=== PATIENT | female | born 1980 | race African-American/Black ===

== ENCOUNTER 2016-12-13 07:26 | Emergency (ER) | payer MEDICAID ==
--- NOTE | 2016-12-13 08:13 | ER Document Report ---
ED ENT - General Mode of Arrival: Ambulatory Information source: Patient TRAVEL OUTSIDE OF THE [place] IN LAST 30 DAYS: No - HPI Patient complains to provider of: Nose problem Associated symptoms: Other - See above <RUSTY FUNG - Last Filed: 12/13/16 08:36> <ALEXANDRA LOGAN - Last Filed: 12/13/16 15:40> - General Chief Complaint: Nose Bleed Stated Complaint: NOSE BLEED Time Seen by Provider: 12/13/16 07:54 Notes: Patient is a 36 year old female, with a past medical history including HTN, who presents to the emergency department complaining of a nose bleed onset yesterday. Patient states that she has been dizzy and having headaches and neck pain for the past couple of weeks and has not been taking her Lisinopril for 2- 3 months because of side effects she read about. Patient states she has not talked about this with her PCP. Patient states that the nose bleed was "gushing " last night and had blood down running down her throat, patient states the bleeding has stopped this morning. Patient denies vaginal bleeding and bleeding gums. PCP: [facility] (RUSTY FUNG) - Related Data Allergies/Adverse Reactions: Penicillins Allergy (Verified 12/13/16 07:38) Past Medical History - General Information source: Patient - Social History Smoking Status: Unknown if Ever Smoked Family History: Reviewed & Not Pertinent Patient has suicidal ideation: No Patient has homicidal ideation: No Pulmonary Medical History: Reports: Hx Bronchitis GI Medical History: Reports: Hx Gastroesophageal Reflux Disease - heartburn r/t per pt Past Surgical History: Reports: Hx Gynecologic Surgery - leep - Immunizations Hx Diphtheria, Pertussis, Tetanus Vaccination: No <RUSTY FUNG - Last Filed: 12/13/16 08:36> Review of Systems - Review of Systems Constitutional: No symptoms reported EENT: See HPI, Nose discharge. denies: Other - gum bleeding Cardiovascular: See HPI, Dizziness Respiratory: No symptoms reported Gastrointestinal: No symptoms reported Genitourinary: No symptoms reported Female Genitourinary: denies: Vaginal bleeding Musculoskeletal: See HPI, Neck pain Skin: No symptoms reported Hematologic/Lymphatic: No symptoms reported Neurological/Psychological: See HPI, Headaches -: Yes All other systems reviewed and negative <RUSTY FUNG - Last Filed: 12/13/16 08:36> Physical Exam - Vital signs Interpretation: Normal - General General appearance: Appears well, Alert - HEENT Head: Normocephalic, Atraumatic Eyes: Normal Ears: Normal External canal: Normal Tympanic membrane: Normal Nasal: Normal Mouth/Lips: Normal Pharynx: Normal - Respiratory Respiratory status: No respiratory distress - Cardiovascular Rhythm: Regular Heart sounds: Normal auscultation Murmur: No - Extremities General upper extremity: Normal inspection General lower extremity: Normal inspection - Neurological Neuro grossly intact: Yes Cognition: Normal Orientation: AAOx4 Danya Coma Scale Eye Opening: Spontaneous [place] Coma Scale Verbal: Oriented Danya Coma Scale Motor: Obeys Commands Danya Coma Scale Total: 15 Speech: Normal - Psychological Associated symptoms: Normal affect, Normal mood - Skin Skin Temperature: Warm Skin Moisture: Dry Skin Color: Normal <RUSTY FUNG - Last Filed: 12/13/16 08:36> Course <RUSTY FUNG - Last Filed: 12/13/16 08:36> - Laboratory Result Diagrams: 12/13/16 08:30 <ALEXANDRA LOGAN - Last Filed: 12/13/16 15:40> - Re-evaluation Re-evalutation: 12/13/16 09:06 Patient presents to the emergency department with elevated blood pressure has been taking her blood pressure medication in months because she read it could have a side effect associated with it even though she did not have a side effect with it. Also has not seen her primary care physician months. Blood pressure is been chronically elevated yesterday she had a nosebleed when she laid down flat it drip down in the back of the throat. The first episode of nosebleed that she has had. She does not have any history of anticoagulation or blood disorder. The epistaxis is resolved right now with normal HEENT examination. Also states she has been having right paracervical neck pain going on for several weeks. It is worse when she wakes up in the morning she feels like it is stiff and sore after she sleeps. She has no chest pain no shortness of breath no nausea vomiting abdominal pain diarrhea fevers chills change in appetite. On examination her blood pressure is elevated there is no epistaxis. Pupils are correct that time extremities are moist no posterior pharyngeal erythema edema or exudate trach is midline neck is supple heart lungs abdomen soft normal neurological examination GCS of 15. CT of head is negative for acute pathology. Currently there is no epistaxis. Discussed blood pressure management with her she seems unwilling to take her medication. And refuses a dose of it here. Explained her that she would need to follow-up with her primary care physician in 2-3 days for alternatives to elevated blood pressure as this will lead to stroke heart attack or . Right now the nosebleed is stopped instructed her on reasons for ED return sooner (ALEXANDRA LOGAN) - Vital Signs Vital signs: Temp Pulse Resp BP Pulse Ox 97.8 F 80 18 149/106 H 97 12/13/16 09:24 12/13/16 09:24 12/13/16 09:24 12/13/16 09:24 12/13/16 09:24 - Laboratory Laboratory results interpreted by me: 12/13/16 08:30 Sodium 148.5 H Chloride 111 H Discharge <RUSTY FUNG - Last Filed: 12/13/16 08:36> <ALEXANDRA LOGAN - Last Filed: 12/13/16 15:40> - Discharge Clinical Impression: hypertension untreated, nose bleed resolved, dizziness Condition: Stable Disposition: HOME, SELF-CARE Additional Instructions: High Blood Pressure When your blood pressure was taken today it was elevated. Today's reading was . Pre-hypertension/Hypertension: The patient has been informed that they may have pre-hypertension or Hypertension based on a blood pressure reading in the emergency department. I recommend that the patient call the primary care provider listed on their dischargge instructions or a physician of their choice this wee to arrage follow up for further evaluation of possible pre- hypertension or Hypertension. Sometimes, stress or illness causes a temporary elevation of your blood pressure. We suggest that you get your blood pressure measured three more times during the next few days to see if this is more than a temporary abnormality. If your blood pressure is greater than 150/90 on each occasion, you must have treatment. Some simple things you can do to help are: If you have blood pressure medicine but aren't using it regularly, start taking it again. Get some aerobic exercise for at least 20 minutes on a daily basis. (See your doctor before beginning a new exercise program.) Eat a low-fat diet. Lose excess weight. Avoid salty foods and avoid adding salt to any of the foods you eat. Avoid diet pills, decongestants, "energizing" herbs, and other medicines that elevate blood pressure. If left untreated, hypertension greatly enhances your risk for developing heart disease and strokes. Please don't ignore this problem. Dizziness Under normal circumstances, your sense of balance is controlled by a number of signals that your brain receives from several locations: Eyes. No matter what your position, visual signals help you determine where your body is in space and how it's moving. Sensory nerves. These are in your skin, muscles and joints. Sensory nerves send messages to your brain about body movements and positions. Inner ear. The organ of balance in your inner ear is the vestibular labyrinth. It includes loop-shaped structures (semicircular canals) that contain fluid and fine, hair-like sensors that monitor the rotation of your head. Near the semicircular canals are the utricle and saccule, which contain tiny particles called otoconia ([id number]). These particles are attached to sensors that help detect gravity and fyjq-gre-dawwk motion. Good balance depends on at least two of these three sensory systems working well. For instance, closing your eyes while washing your hair in the shower doesn't mean you'll lose your balance. Signals from your inner ear and sensory nerves help keep you upright. However, if your central nervous system can't process signals from all of these locations, if the messages are contradictory, or if the sensory systems aren't functioning properly, you may experience loss of balance. Dizziness may have a number of potential causes. These may include: Nosebleed Instructions There is a significant chance of re-bleeding following a nosebleed. Proper care makes this less likely. Do not touch the nose for 24 hours. Do not blow the nose forcefully for one week. After 24 hours, gently apply Vaseline ointment to both nostrils with the tip of a finger, three times a day, for one week. It's normal to have a bloody mucous discharge for a few days. If active bleeding recurs, blow all the blood from the nose, then sit quietly and pinch the nose as firmly as possible for 10 minutes. If this does not stop the bleeding, return for further care. If packing was left in the nose and it starts to come out of the nostril, either tuck it back in or cut it off. Don't pull it out. Return for recheck and removal of the packing when instructed. Persons with frequent nosebleeds should avoid aspirin (unless prescribed for another reason). Humidity in the bedroom, and petroleum jelly applied to the nostrils at night may help. Referrals: FORTINO WILSON MD [Primary Care Provider] - (Your blood pressure is elevated and you have been taking her blood pressure medication in months please start your medication at home today and take blood pressure medication daily to prevent stroke heart attack or endorgan damage. Follow-up with your primary care physician in 2-3 days return for increasing worsening or new symptoms) Scribe Attestation: 12/13/16 09:06 I personally performed the services described in the documentation reviewed the documentation recorded by my scribe in my presence and it accurately and completely records my words and actions (ALEXANDRA LOGAN) Scribe Documentation - Scribe Written by Manuel:: manuel Rios, 12/13/16, 0852 acting as scribe for :: Abe <RUSTY FUNG - Last Filed: 12/13/16 08:36>
[2016-12-13 09:01] LABS: ANION GAP 14 (5-19); BLOOD UREA NITROGEN 10 mg/dL (7-20); CALCIUM 9.1 mg/dL (8.4-10.2); CARBON DIOXIDE 24 mmol/L (22-30); CHLORIDE 111 mmol/L (98-107); CREATININE RESULT 0.85 mg/dL (0.52-1.25); GLUCOSE 100 mg/dL (75-110); POTASSIUM 4.2 mmol/L (3.6-5.0); SODIUM 148.5 mmol/L (137-145)
[2016-12-13 09:29] VITALS: BP 149/106
== END 2016-12-13 09:28 | disposition home or self-care (01) ==
LOC: ER 07:26
PROC: 2Y41X5Z Packing of Nasal Region using Packing Material (ICD-10-PCS; principal; 2016-12-13)
DX: R04.0 Epistaxis (principal); I10 Essential (primary) hypertension; T50.906A Underdosing of unspecified drugs, medicaments and biological substances, initial encounter; Z91.128 Patient's intentional underdosing of medication regimen for other reason; Z91.14 Patient's other noncompliance with medication regimen; F41.9 Anxiety disorder, unspecified; Z88.0 Allergy status to penicillin
CPT/HCPCS: 36415; 70450; 80048; 99284

== ENCOUNTER 2016-12-14 08:59 | Emergency (ER) | payer MEDICAID ==
[2016-12-14 10:10] LABS: ABSOLUTE EOSINOPHILS # (AUTO) 0.3 10^3/uL (0.0-0.6); ABSOLUTE LYMPHOCYTES (AUTO) 2.1 10^3/uL (0.5-4.7); ABSOLUTE MONOCYTES (AUTO) 0.3 10^3/uL (0.1-1.4); ABSOLUTE NEUT (AUTO) 2.7 10^3/uL (1.7-8.2); BASOPHILS % (AUTO) 0.6 % (0-2); EOSINOPHILS % (AUTO) 4.9 % (0-6); HEMATOCRIT 39.4 % (36.0-47.0); HEMOGLOBIN 13.4 g/dL (12.0-15.5); HGB HCT DIFFERENCE 0.8; MEAN CORPUSCULAR HGB CONC 33.9 g/dL (32.0-36.0); MEAN CORPUSCULAR VOLUME 94 fl (80-97); MONOCYTES % (AUTO) 5.2 % (3-13); RED BLOOD COUNT 4.18 10^6/uL (3.72-5.28); SEGMENTED NEUTROPHILS % (AUTO) 50.3 % (42-78); WHITE BLOOD COUNT 5.3 10^3/uL (4.0-10.5)
--- NOTE | 2016-12-14 10:25 | ER Document Report ---
ED General - General Chief Complaint: Dizziness Stated Complaint: DIZZINESS,NOSE BLEED Time Seen by Provider: 12/14/16 09:30 Mode of Arrival: Ambulatory Information source: Patient Notes: 36-year-old female presents complaints of feeling dizzy. Patient notes she has had a nosebleed 3 intermittently since yesterday, was seen here yesterday for her complaints no specific abnormality was noted except for high blood pressure. Admits to drinking alcohol states she feels buzzed TRAVEL OUTSIDE OF THE [place] IN LAST 30 DAYS: No - HPI Onset: Yesterday Onset/Duration: Sudden Quality of pain: No pain Severity: None Pain Level: Denies Associated symptoms: Weakness Exacerbated by: Denies Relieved by: Denies Similar symptoms previously: Yes Recently seen / treated by doctor: Yes - Related Data Allergies/Adverse Reactions: Penicillins Allergy (Verified 12/14/16 09:09) Past Medical History - Social History Smoking Status: Never Smoker Cigarette use (# per day): No Chew tobacco use (# tins/day): No Smoking Education Provided: No Frequency of alcohol use: Occasional Family History: Reviewed & Not Pertinent Patient has suicidal ideation: No Patient has homicidal ideation: No - Past Medical History Cardiac Medical History: Reports: Hx Hypertension - stopped taking medication Pulmonary Medical History: Reports: Hx Bronchitis Renal/ Medical History: Denies: Hx Peritoneal Dialysis GI Medical History: Reports: Hx Gastroesophageal Reflux Disease - heartburn r/t per pt Past Surgical History: Reports: Hx Gynecologic Surgery - leep - Immunizations Hx Diphtheria, Pertussis, Tetanus Vaccination: No Review of Systems - Review of Systems Notes: PHYSICAL EXAMINATION: GENERAL: Well-appearing, well-nourished and in no acute distress. HEAD: Atraumatic, normocephalic. EYES: Pupils equal round and reactive to light, extraocular movements intact, conjunctiva are normal. ENT: Nares patent, oropharynx clear without exudates. Moist mucous membranes. NECK: Normal range of motion, supple without lymphadenopathy LUNGS: Breath sounds clear to auscultation bilaterally and equal. No wheezes rales or rhonchi. HEART: Regular rate and rhythm without murmurs ABDOMEN: Soft, nontender, nondistended abdomen. No guarding, no rebound. No masses appreciated. Female : deferred Musculoskeletal: Normal range of motion, no pitting or edema. No cyanosis. NEUROLOGICAL: Cranial nerves grossly intact. Normal speech, normal gait. Normal sensory, motor exams PSYCH: Normal mood, normal affect. SKIN: Warm, Dry, normal turgor, no rashes or lesions noted. Physical Exam - Vital signs Vitals: Temp Pulse Resp BP Pulse Ox 97.9 F 82 18 148/98 H 97 12/14/16 09:09 12/14/16 09:09 12/14/16 09:09 12/14/16 09:09 12/14/16 09:09 Course - Re-evaluation Re-evalutation: 12/14/16 10:25 Lab work is pending however I have very low suspicion for any life-threatening issues. Patient does smell of alcohol 12/14/16 11:42 Labwork notes an alcohol level that is quite elevated, she states she only drank last night 2 shots but it appears this is the actual cause of the patient' s real cause of symptoms After performing a Medical Screening Examination, I estimate there is LOW risk for INTRACRANIAL HEMORRHAGE, ISCHEMIC CVA, MALIGNANT DYSRHYTHMIA, ACUTE CORONARY SYNDROME, MENINGITIS, PULMONARY EMBOLISM, or SEPSIS thus I consider the discharge disposition reasonable. I have reevaluated this patient multiple times and no significant life threatening changes are noted. The patient and I have discussed the diagnosis and risks, and we agree with discharging home with close follow-up with the understanding that symptoms and presentations can change. We also discussed returning to the Emergency Department immediately if new or worsening symptoms occur. We have discussed the symptoms which are most concerning (e.g., changing or worsening pain, weakness, vomiting, fever) that necessitate immediate return. - Vital Signs Vital signs: Temp Pulse Resp BP Pulse Ox 97.9 F 85 18 148/98 H 99 12/14/16 09:30 12/14/16 09:30 12/14/16 09:30 12/14/16 09:30 12/14/16 09:30 - Laboratory Result Diagrams: 12/14/16 09:50 12/14/16 09:50 Laboratory results interpreted by me: 12/14/16 09:50 Sodium 145.5 H Chloride 109 H Discharge - Discharge Clinical Impression: Nosebleed Alcohol intoxication Qualifiers: Complication of substance-induced condition: uncomplicated Qualified Code(s): F10.920 - Alcohol use, unspecified with intoxication, uncomplicated Condition: Stable Disposition: HOME, SELF-CARE Instructions: Dizziness ([facility]) Referrals: FORTINO WILSON MD [Primary Care Provider] - Follow up tomorrow
[2016-12-14 10:37] LABS: ALANINE AMINOTRANSFERASE 42 U/L (9-52); ALBUMIN 4.3 g/dL (3.5-5.0); ALKALINE PHOSPHATASE 94 U/L (38-126); ANION GAP 13 (5-19); ASPARTATE AMINO TRANSFERASE 36 U/L (14-36); BILIRUBIN,DIRECT 0.4 mg/dL (0.0-0.4); BILIRUBIN,TOTAL 0.5 mg/dL (0.2-1.3); BLOOD UREA NITROGEN 15 mg/dL (7-20); CALCIUM 9.5 mg/dL (8.4-10.2); CARBON DIOXIDE 24 mmol/L (22-30); CHLORIDE 109 mmol/L (98-107); CREATININE RESULT 0.89 mg/dL (0.52-1.25); GLUCOSE 88 mg/dL (75-110); POTASSIUM 3.9 mmol/L (3.6-5.0); SODIUM 145.5 mmol/L (137-145); TOTAL PROTEIN 7.9 g/dL (6.3-8.2)
[2016-12-14 12:04] VITALS: BP 142/98
--- NOTE | 2016-12-14 17:10 | EKG REPORT ---
SEVERITY:- NORMAL ECG - SINUS RHYTHM : Confirmed by: Starr Patel MD 14-Dec-2016 17:09:22
== END 2016-12-14 12:04 | disposition home or self-care (01) ==
LOC: ER 08:59
DX: R04.0 Epistaxis (principal); F10.920 Alcohol use, unspecified with intoxication, uncomplicated; R42 Dizziness and giddiness
CPT/HCPCS: 36415; 71020; 80053; 80307; 81025; 84443; 85025; 93005; 93010; 99284

== ENCOUNTER 2016-12-14 23:35 | Emergency (ER) | payer MEDICAID ==
[2016-12-15] MEDS ORDERED: OXYMETAZOLINE HCL 0.05% NASAL SPRAY 15 ML BOTTLE NASL ONE (00:23)
[2016-12-15] MEDS ORDERED: ONDANSETRON HCL INJ/PF 4 MG/2 ML SDV IV ONE (00:31)
[2016-12-15] MEDS ORDERED: MORPHINE SULFATE 10 MG/ML INJ IV ONE ×2 (00:31→03:03)
--- NOTE | 2016-12-15 00:32 | ER Document Report ---
Addendum entered and electronically signed by ZE RAGLAND PA 12/17/16 06:44: Procedures - Nosebleed Procedure Left Location: Posterior Supplies used: Rhinorocket - rhinorocket prepared with sterile water, lube, inserted first slightly up and then straight back into the left nare; 8 cc applied to fill balloon, at this point patient requested me to stop and would not tolerate more. Secured to face with tape. Patient tolerated procedure well, coughed out a large blood clot. Original Note: ED ENT - General Chief Complaint: Nose Bleed Stated Complaint: NOSE BLEED/VOMITING BLOOD Time Seen by Provider: 12/15/16 00:19 Notes: Patient is a 36-year-old female with a past medical history of hypertension that comes emergency department for chief complaint of nosebleed. She states that over the past 3 days she has had intermittent bleeds, she has been here twice already. She had alcohol in her system and a visit earlier today, she denies drinking anything since that time. She states she has not taken her blood pressure medication and she frequently does not because it makes her feel dizzy when she does so. Denies any past medical history other than high blood pressure. TRAVEL OUTSIDE OF THE [place] IN LAST 30 DAYS: No - Related Data Allergies/Adverse Reactions: Penicillins Allergy (Verified 12/15/16 00:17) Past Medical History - General Information source: Patient - Social History Smoking Status: Never Smoker Frequency of alcohol use: Occasional Drug Abuse: None Lives with: Family Family History: Reviewed & Not Pertinent Patient has suicidal ideation: No Patient has homicidal ideation: No - Past Medical History Cardiac Medical History: Reports: Hx Hypertension - stopped taking medication Pulmonary Medical History: Reports: Hx Bronchitis Renal/ Medical History: Denies: Hx Peritoneal Dialysis GI Medical History: Reports: Hx Gastroesophageal Reflux Disease - heartburn r/t per pt Past Surgical History: Reports: Hx Gynecologic Surgery - leep - Immunizations Hx Diphtheria, Pertussis, Tetanus Vaccination: No Review of Systems - Review of Systems Constitutional: No symptoms reported EENT: See HPI Cardiovascular: See HPI Respiratory: No symptoms reported Gastrointestinal: No symptoms reported Genitourinary: No symptoms reported Female Genitourinary: No symptoms reported Musculoskeletal: No symptoms reported Skin: No symptoms reported Hematologic/Lymphatic: No symptoms reported Neurological/Psychological: No symptoms reported Physical Exam - Vital signs Vitals: Temp Pulse Resp BP Pulse Ox 0 F L 93 18 199/130 H 100 12/15/16 00:14 12/15/16 00:14 12/15/16 00:14 12/15/16 00:14 12/15/16 00:14 Interpretation: Normal - General General appearance: Anxious In distress: Moderate - patient anxious, occassionally sputtering and spitting out blood, obvious epistaxis - HEENT Head: Normocephalic, Atraumatic Eyes: Normal Extraocular movements intact: Yes Eyelashes: Normal Pupils: PERRL Nasal: Bloody discharge, Epistaxis Mucous membranes: Normal Pharynx: Blood in hypopharynx Neck: Normal - Respiratory Respiratory status: No respiratory distress Chest status: Nontender Breath sounds: Normal Chest palpation: Normal - Cardiovascular Rhythm: Regular. No: Tachycardia Heart sounds: Normal auscultation, S1 appreciated, S2 appreciated Murmur: No - Abdominal Inspection: Normal Distension: No distension Bowel sounds: Normal Tenderness: Nontender. No: Tender Organomegaly: No organomegaly - Back Back: Normal, Nontender. No: Tender - Extremities General upper extremity: Normal inspection, Nontender, Normal color, Normal ROM , Normal temperature General lower extremity: Normal inspection, Nontender, Normal color, Normal ROM , Normal temperature, Normal weight bearing. No: Lanre's sign - Neurological Neuro grossly intact: Yes Cognition: Normal Orientation: AAOx4 Danya Coma Scale Eye Opening: Spontaneous Danya Coma Scale Verbal: Oriented [place] Coma Scale Motor: Obeys Commands [place] Coma Scale Total: 15 Speech: Normal Motor strength normal: LUE, RUE, LLE, RLE Sensory: Normal - Psychological Associated symptoms: Anxious - Skin Skin Temperature: Warm Skin Moisture: Dry Skin Color: Normal Course - Re-evaluation Re-evalutation: Patient initially anxious, hypertensive, significantly bleeding from left nare, hard to visualize the bleed, semi posterior. Packing placed, giving pain medication, will recheck. Discussed with Dr. Ruiz. Blood counts reviewed from this AM and yesterday, unremarkable. Patient still very hypertensive. Slight trickle of epistaxis. Giving labetolol. Still very hypertensive, giving hydralazine. Patient much improved. Blood pressure 160s systolic, patient comfortable bleeding stopped. On re-evaluation bleeding and blood pressure still controlled, beginning her home medication. ENT referral placed, antibiotic given, return precautions given. Patient to return for returned bleeding, headache, etc. Patient and mom state understanding and agreement. - Vital Signs Vital signs: Temp Pulse Resp BP Pulse Ox 0 F L 68 15 167/91 H 98 12/15/16 00:14 12/15/16 02:10 12/15/16 05:14 12/15/16 05:14 12/15/16 05:14 Discharge - Discharge Clinical Impression: Epistaxis, Uncontrolled hypertension Condition: Stable Disposition: HOME, SELF-CARE Additional Instructions: The packing needs to come out in 2 days, call tomorrow to establish follow-up with the office, see referral below. Do not drink any alcohol, take aspirin or other blood thinners. Take the antibiotic as prescribed, take the pain medication if needed. Take your prescribed medication for blood pressure, follow-up in about 1 week with your primary care provider for additional adjustment. Return to the ED for any concerning or worsening symptoms - severe headache, re- bleeding, fever, etc. [facility] (ENT) [address] [place] [address] Prescriptions: Cephalexin Monohydrate [Keflex 500 mg Capsule] 500 mg PO BID #10 capsule Lisinopril 10 mg PO DAILY #30 tablet Ondansetron [Zofran Odt 4 mg Tablet] 1 - 2 tab PO Q4H PRN #15 tab.rapdis PRN Reason: For Nausea/Vomiting Oxycodone HCl/Acetaminophen [Percocet 5-325 mg Tablet] 1 - 2 tab PO Q4H PRN #15 tablet PRN Reason: Forms: Return to Work Referrals: NINO PARKS MD [Primary Care Provider] - Follow up in 3-5 days
[2016-12-15] MEDS ORDERED: LABETALOL HCL INJ 20 MG/4 ML DISP.SYRIN IV ONE ×2 (01:15→01:42)
[2016-12-15] MEDS ORDERED: HYDRALAZINE HCL INJ/PF 20 MG/1 ML SDV IV ONE (02:11)
[2016-12-15] MEDS ORDERED: LISINOPRIL 10 MG TABLET PO ONE (03:03)
[2016-12-15] MEDS ORDERED: HYDROCODONE/ACETAMINOPHEN 5-325 MG 6 TAB/DSPK PO PRN (04:09)
[2016-12-15] MEDS ORDERED: ONDANSETRON ODT 4 MG TAB (6 TAB/DSPK) PO PRN (05:22)
[2016-12-15 05:37] VITALS: BP 167/91
== END 2016-12-15 05:38 | disposition home or self-care (01) ==
LOC: ER 23:35
PROC: 2Y41X5Z Packing of Nasal Region using Packing Material (ICD-10-PCS; principal; 2016-12-14)
DX: R04.0 Epistaxis (principal); I10 Essential (primary) hypertension; R42 Dizziness and giddiness
CPT/HCPCS: 99283; 30905; J0360; J3490 ×3; J2270; J2405

== ENCOUNTER 2016-12-15 17:49 | Emergency (ER) | payer MEDICAID ==
[2016-12-15] MEDS ORDERED: LABETALOL HCL INJ 20 MG/4 ML DISP.SYRIN IV ONE (19:07)
[2016-12-15] MEDS ORDERED: ONDANSETRON HCL INJ/PF 4 MG/2 ML SDV IV ONE (19:07)
[2016-12-15] MEDS ORDERED: MORPHINE SULFATE 10 MG/ML INJ IV ONE (19:07)
--- NOTE | 2016-12-15 19:30 | ER Document Report ---
ED General - General Chief Complaint: Hypertension, nosebleed Stated Complaint: HIGH BLOOD PRESSURE,NOSE BLEED Time Seen by Provider: 12/15/16 19:00 Notes: Patient is a 36 year old female that comes to the ED for chief complaint of elevated blood pressure. Patient states that she relaxed and rested all day because she was seen here for nosebleed and hypertension yesterday, she has now resumed her lisinopril 10 mg daily (dose early this morning here), she states that blood pressure started elevating this evening and when it became very elevated at home she started feeling pressure in her nose again and came to the emergency department, shortly after that she started bleeding from the right side and tasting blood posteriorly again. Patient denies any alcohol, drug use. Patient was evaluated for this same thing in this department 3 times over the past 2 days. TRAVEL OUTSIDE OF THE [place] IN LAST 30 DAYS: No - Related Data Allergies/Adverse Reactions: Penicillins Allergy (Verified 12/15/16 00:17) Past Medical History - General Information source: Patient - Social History Smoking Status: Never Smoker Frequency of alcohol use: None Drug Abuse: None Lives with: Family Family History: Reviewed & Not Pertinent - Past Medical History Cardiac Medical History: Reports: Hx Hypertension - stopped taking medication Pulmonary Medical History: Reports: Hx Bronchitis Renal/ Medical History: Denies: Hx Peritoneal Dialysis GI Medical History: Reports: Hx Gastroesophageal Reflux Disease - heartburn r/t per pt Past Surgical History: Reports: Hx Gynecologic Surgery - leep - Immunizations Hx Diphtheria, Pertussis, Tetanus Vaccination: No Review of Systems - Review of Systems Constitutional: No symptoms reported EENT: See HPI Cardiovascular: No symptoms reported Respiratory: No symptoms reported Gastrointestinal: No symptoms reported Genitourinary: No symptoms reported Female Genitourinary: No symptoms reported Musculoskeletal: No symptoms reported Skin: No symptoms reported Hematologic/Lymphatic: No symptoms reported Neurological/Psychological: No symptoms reported Physical Exam - Vital signs Vitals: Temp Pulse Resp BP Pulse Ox 98.7 F 100 20 212/127 H 93 12/15/16 18:41 12/15/16 18:41 12/15/16 18:41 12/15/16 18:41 12/15/16 18:41 Interpretation: Normal - General General appearance: Alert, Anxious In distress: Mild - Patient appears uncomfortable - HEENT Head: Normocephalic, Atraumatic Eyes: Normal Conjunctiva: Normal Extraocular movements intact: Yes Eyelashes: Normal Pupils: PERRL Ears: Normal Nasal: Epistaxis - Right-sided epistaxis with left packing still in place Mouth/Lips: Normal Mucous membranes: Normal Pharynx: Normal Neck: Normal - Respiratory Respiratory status: No respiratory distress Chest status: Nontender Breath sounds: Normal Chest palpation: Normal - Cardiovascular Rhythm: Regular. No: Tachycardia Heart sounds: Normal auscultation, S1 appreciated, S2 appreciated Murmur: No - Abdominal Inspection: Normal Distension: No distension Bowel sounds: Normal Tenderness: Nontender Organomegaly: No organomegaly - Back Back: Normal, Nontender. 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 However blood pressure is very elevated at 210+ systolic. Labetalol given because of epistaxis with hypertension. Pain medicine given as well. CBC, coagulation tests, chemistry including any functioning unremarkable. Ultrasound testing for potential renal artery aneurysm performed because of patient's sudden onset of hypertension with epistaxis over the past several days. On reevaluation patient significantly improved, blood pressure has dropped significantly, bleeding has stopped. Patient is requesting the packing to be removed because of the discomfort. I did agree to remove the packing. Packing removed, patient monitored for over an hour without any rebleeding. Discussed with Dr. Ruiz. Patient will be started on increased and dual hypertension therapy, she states surgery has plans to follow-up with primary care, she states she will continue antibiotic, she states that she understands return precautions already. Also provided with nosebleed instructions. Patient states she feels good, does not have any pain, is ready to leave. Almost 2 hours since epistaxis has resolved. Patient discharged with return precautions. - Vital Signs Vital signs: Temp Pulse Resp BP Pulse Ox 98.7 F 100 20 138/86 H 100 12/15/16 18:41 12/15/16 18:41 12/15/16 18:41 12/15/16 23:31 12/15/16 23:31 - Laboratory Result Diagrams: 12/15/16 19:15 12/15/16 19:15 Discharge - Discharge Clinical Impression: Uncontrolled hypertension, Epistaxis Condition: Stable Disposition: HOME, SELF-CARE Additional Instructions: The ultrasound does not show any concerning abnormalities with your kidneys, the blood work shows no abnormalities. Reduce sodium in diet. Do not drink alcohol. Take 20 mg of lisinopril (two of the 10 mg tablets) today, fill and begin the prescribed medication, follow up closely with Primary Care for additional management. Complete antibiotic. See nosebleed instructions below, return for any concerning symptoms. Nosebleed Instructions There is a significant chance of re-bleeding following a nosebleed. Proper care makes this less likely. Do not touch the nose for 24 hours. Do not blow the nose forcefully for one week. After 24 hours, gently apply Vaseline ointment to both nostrils with the tip of a finger, three times a day, for one week. It's normal to have a bloody mucous discharge for a few days. If active bleeding recurs, blow all the blood from the nose, then sit quietly and pinch the nose as firmly as possible for 10 minutes. If this does not stop the bleeding, return for further care. If packing was left in the nose and it starts to come out of the nostril, either tuck it back in or cut it off. Don't pull it out. Return for recheck and removal of the packing when instructed. Persons with frequent nosebleeds should avoid aspirin (unless prescribed for another reason). Humidity in the bedroom, and petroleum jelly applied to the nostrils at night may help. Prescriptions: Lisinopril/Hydrochlorothiazide [Lisinopril-Hctz 20-25 mg Tab] 1 each PO DAILY # 30 tablet Referrals: GONZALES SHAH MD [ACTIVE STAFF] - Follow up in 3-5 days
[2016-12-15 19:33] LABS: ABSOLUTE EOSINOPHILS # (AUTO) 0.1 10^3/uL (0.0-0.6); ABSOLUTE LYMPHOCYTES (AUTO) 1.7 10^3/uL (0.5-4.7); ABSOLUTE MONOCYTES (AUTO) 0.5 10^3/uL (0.1-1.4); BASOPHILS % (AUTO) 0.5 % (0-2); EOSINOPHILS % (AUTO) 1.6 % (0-6); HEMATOCRIT 36.7 % (36.0-47.0); HEMOGLOBIN 12.5 g/dL (12.0-15.5); HGB HCT DIFFERENCE 0.8; LYMPHOCYTES % (AUTO) 20.2 % (13-45); MEAN CORPUSCULAR HEMOGLOBIN 31.7 pg (27.0-33.4); MEAN CORPUSCULAR VOLUME 93 fl (80-97); MONOCYTES % (AUTO) 5.6 % (3-13); RED BLOOD COUNT 3.95 10^6/uL (3.72-5.28); RED CELL DISTRIBUTION WIDTH 12.6 % (11.5-14.0); SEGMENTED NEUTROPHILS % (AUTO) 72.1 % (42-78); WHITE BLOOD COUNT 8.3 10^3/uL (4.0-10.5)
[2016-12-15 19:44] LABS: PARTIAL THROMBOPLASTIN TIME 28.5 SEC (23.5-35.8)
[2016-12-15 19:54] LABS: ANION GAP 13 (5-19); BLOOD UREA NITROGEN 15 mg/dL (7-20); CARBON DIOXIDE 22 mmol/L (22-30); CHLORIDE 104 mmol/L (98-107); CREATININE RESULT 0.88 mg/dL (0.52-1.25); GLUCOSE 108 mg/dL (75-110); POTASSIUM 3.7 mmol/L (3.6-5.0)
--- NOTE | 2016-12-15 21:59 | RADIOLOGY REPORT (SQ) ---
EXAM DESCRIPTION: DUPLEX ART/COLEEN FLOW COMPLETE COMPLETED DATE/TIME: 12/15/2016 9:33 pm REASON FOR STUDY: renal -uncontrolled new onset hypertension COMPARISON: None. TECHNIQUE: Realtime and static grayscale images acquired. Selected color Doppler, velocities and spe ctral images recorded. LIMITATIONS: None. FINDINGS: RIGHT KIDNEY: RENAL Segmental artery velocity 0.82 cm/sec. RENAL VEIN: Color doppler flow present, patent. VELOCITY RATIO: 1.17. Normal waveforms. KIDNEY: Normal size. No significant pathology. LEFT KIDNEY: RENAL Segmental artery velocity 0.86 cm/sec. RENAL VEIN: Color doppler flow present, patent. VELOCITY RATIO: 1.13. Normal waveforms. KIDNEY: Normal size. No significant pathology. BLADDER: Normal. OTHER: No other significant finding. IMPRESSION: NO DOPPLER EVIDENCE OF HEMODYNAMICALLY SIGNIFICANT RENAL ARTERY STENOSIS. COMMENT: NORMAL RENAL ARTERY/AORTA VELOCITY RATIO IS LESS THAN OR EQUAL TO 3.5. TECHNICAL DOCUMENTATION: JOB ID: [id number] 1965 [employer]- All Rights Reserved
[2016-12-15] MEDS ORDERED: HYDROCHLOROTHIAZIDE 25 MG TABLET PO ONE (23:33)
[2016-12-15 23:42] VITALS: BP 138/86
== END 2016-12-15 23:55 | disposition home or self-care (01) ==
LOC: ER 17:49
DX: I10 Essential (primary) hypertension (principal); R04.0 Epistaxis; Z88.0 Allergy status to penicillin
CPT/HCPCS: 99283; 96374; 96375; 36415; 80307; 84703; 85025; 85610; 85730; 80048; 93975; J3490 ×2; J2270; J2405

== ENCOUNTER 2017-03-05 21:12 | Inpatient (IN) | payer MEDICAID ==
[2017-03-05 22:17] LABS: ABSOLUTE LYMPHOCYTES (AUTO) 0.6 10^3/uL (0.5-4.7); ABSOLUTE MONOCYTES (AUTO) 0.8 10^3/uL (0.1-1.4); BASOPHILS % (AUTO) 0.5 % (0-2); EOSINOPHILS % (AUTO) 0.5 % (0-6); HEMATOCRIT 40.5 % (36.0-47.0); HEMOGLOBIN 13.6 g/dL (12.0-15.5); HGB HCT DIFFERENCE 0.3; LYMPHOCYTES % (AUTO) 6.5 % (13-45); MEAN CORPUSCULAR HEMOGLOBIN 31.5 pg (27.0-33.4); MEAN CORPUSCULAR HGB CONC 33.5 g/dL (32.0-36.0); MEAN CORPUSCULAR VOLUME 94 fl (80-97); RED CELL DISTRIBUTION WIDTH 14.7 % (11.5-14.0); SEGMENTED NEUTROPHILS % (AUTO) 84.5 % (42-78); WHITE BLOOD COUNT 9.4 10^3/uL (4.0-10.5)
[2017-03-05 22:27] LABS: APPEARANCE,URINE SLIGHTLY-CLOUDY; BILIRUBIN,URINE NEGATIVE (NEGATIVE); GLUCOSE, URINE NEGATIVE (NEGATIVE); KETONES,URINE TRACE mg/dL (NEGATIVE); LEUKOCYTE ESTERASE,URINE MODERATE (NEGATIVE); NITRITE,URINE POSITIVE (NEGATIVE); PROTEIN,URINE 100 mg/dL (NEGATIVE); URINE SPECIFIC GRAVITY 1.012; UROBILINOGEN,URINE NEGATIVE mg/dL (<2.0)
[2017-03-05 22:44] LABS: ALANINE AMINOTRANSFERASE 32 U/L (9-52); ALBUMIN 4.2 g/dL (3.5-5.0); ALKALINE PHOSPHATASE 112 U/L (38-126); ANION GAP 14 (5-19); ASPARTATE AMINO TRANSFERASE 25 U/L (14-36); BILIRUBIN,DIRECT 0.5 mg/dL (0.0-0.4); BILIRUBIN,TOTAL 0.9 mg/dL (0.2-1.3); BLOOD UREA NITROGEN 9 mg/dL (7-20); CALCIUM 9.4 mg/dL (8.4-10.2); CARBON DIOXIDE 21 mmol/L (22-30); CHLORIDE 106 mmol/L (98-107); CREATININE RESULT 0.92 mg/dL (0.52-1.25); GLUCOSE 98 mg/dL (75-110); LIPASE 176.6 U/L (23-300); POTASSIUM 3.9 mmol/L (3.6-5.0); SODIUM 140.9 mmol/L (137-145); TOTAL PROTEIN 7.7 g/dL (6.3-8.2)
[2017-03-05] MEDS ORDERED: KETOROLAC TROMETHAMINE INJ/PF 30 MG/1 ML SDV IV ONE (23:01)
[2017-03-05] MEDS ORDERED: NORMAL SALINE 1000 ML 1,000 ML IV ONE (23:01)
[2017-03-05] MEDS ORDERED: CEFTRIAXONE 1 GM/D5W RTU 50 ML IV ONE (23:01)
--- NOTE | 2017-03-05 23:21 | RADIOLOGY REPORT (SQ) ---
EXAM DESCRIPTION: CT ABD/PELVIS NO ORAL OR IV COMPLETED DATE/TIME: 03/05/2017 11:09 pm REASON FOR STUDY: eval infected stone COMPARISON: None. TECHNIQUE: CT scan of the abdomen and pelvis performed without intravenous or oral contrast. Images reviewed with lung, soft tissue, and bone windows. Reconstructed coronal and sagittal MPR images revi ewed. All images stored on PACS. All CT scanners at this facility use dose modulation, iterative reconstruction, and/or weight based d osing when appropriate to reduce radiation dose to as low as reasonably achievable (ALARA). [facility]: Dose Right [facility]: CareDose [facility]: Dose Right [facility]: Teradose 4D [facility]: Smart Scentbird RADIATION DOSE: Up-to-date CT equipment and radiation dose reduction techniques were employed. CTDIv ol: 14.3 mGy. DLP: 726 mGy-cm.mGy. LIMITATIONS: None. FINDINGS: LOWER CHEST: No significant findings. No nodules or infiltrates. NON-CONTRASTED LIVER, SPLEEN, ADRENALS: Evaluation limited by lack of IV contrast. No identified sign ificant masses. PANCREAS: No masses. No peripancreatic inflammatory changes. GALLBLADDER: There are gallstones. RIGHT KIDNEY AND URETER: No suspicious masses. Assessment limited by lack of IV contrast. No signif icant calcifications. No hydronephrosis or hydroureter. LEFT KIDNEY AND URETER: No suspicious masses. Assessment limited by lack of IV contrast. There is c alcification along the distal left ureter. Small stone cannot be excluded this measures approximate 1.5 mm in greatest diameter. There is mild dilatation of the left collecting system and ureter. Th ere is left hydronephrosis. AORTA AND RETROPERITONEUM: No aneurysm. No retroperitoneal masses or adenopathy. BOWEL AND PERITONEAL CAVITY: No obvious masses or inflammatory changes. No free fluid. APPENDIX: Normal. PELVIS, BLADDER, AND ABDOMINAL WALL:No abnormal masses. No free fluid. Bladder normal. BONES: No significant findings. OTHER: No other significant finding. IMPRESSION: Mild left-sided hydronephrosis and hydroureter secondary to a 1.5 mm distal left uretera l stone. TECHNICAL DOCUMENTATION: JOB ID: [id number] Quality ID # [id number]: Final reports with documentation of one or more dose reduction techniques (e.g., Au tomated exposure control, adjustment of the mA and/or kV according to patient size, use of iterative reconstruction technique) 2010 [employer] [facility] [employer]- All Rights Reserved
[2017-03-06] MEDS ORDERED: MORPHINE SULFATE 10 MG/ML INJ IV PRN ×2 (00:01→03:02)
--- NOTE | 2017-03-06 01:18 | ER Document Report ---
ED General - General Chief Complaint: Possible Kidney Stone Stated Complaint: LEFT SIDE PAIN Time Seen by Provider: 03/05/17 22:57 Notes: Patient is a 37 year old female without past medical history who presents with progressively worsening left flank pain that became acutely worse tonight prompting her to come to the emergency department. She describes as a severe, constant, stabbing pain to the left flank that does radiate into the left lower groin. She denies any history of similar symptoms in the past. She has had multiple episodes of vomiting associated with this pain. Denies any fever or constitutional symptoms. Nothing improves or worsens her pain. Denies any trauma to the area. No vaginal bleeding or discharge. Denies any dysuria. She has not seen her primary doctor regarding today's concerns. TRAVEL OUTSIDE OF THE [place] IN LAST 30 DAYS: No - Related Data Allergies/Adverse Reactions: Penicillins Allergy (Verified 03/06/17 02:49) rash Home Medications: Current Home Medications Lisinopril/Hydrochlorothiazide [Lisinopril-Hctz 20-25 mg Tab] 20 - 25 mg PO DAILY 03/06/17 [History] Past Medical History - General Information source: Patient - Social History Smoking Status: Never Smoker Frequency of alcohol use: None Drug Abuse: None Lives with: Spouse/Significant other Family History: Reviewed & Not Pertinent Patient has suicidal ideation: No Patient has homicidal ideation: No - Past Medical History Cardiac Medical History: Reports: Hx Hypertension - stopped taking medication Pulmonary Medical History: Reports: Hx Bronchitis Renal/ Medical History: Denies: Hx Peritoneal Dialysis GI Medical History: Reports: Hx Gastroesophageal Reflux Disease - heartburn r/t per pt Past Surgical History: Reports: Hx Gynecologic Surgery - leep - Immunizations Hx Diphtheria, Pertussis, Tetanus Vaccination: No Review of Systems - Review of Systems Notes: Constitutional: Negative for fever. HENT: Negative for sore throat. Eyes: Negative for visual changes. Cardiovascular: Negative for chest pain. Respiratory: Negative for shortness of breath. Gastrointestinal: Positive for flank pain and vomiting Genitourinary: Negative for dysuria. Musculoskeletal: Negative for back pain. Skin: Negative for rash. Neurological: Negative for headaches, weakness or numbness. 10 point ROS negative except as marked above and in HPI. Physical Exam - Vital signs Vitals: Temp Pulse Resp BP Pulse Ox 98.8 F 101 H 20 201/125 H 96 08/10/17 21:36 03/05/17 21:36 03/05/17 21:36 03/05/17 21:36 03/05/17 21:36 Interpretation: Hypertensive Notes: PHYSICAL EXAMINATION: GENERAL: Appears mildly uncomfortable but no acute distress HEAD: Atraumatic, normocephalic. EYES: Pupils equal round and reactive to light, extraocular movements intact, sclera anicteric, conjunctiva are normal. ENT: nares patent, oropharynx clear without exudates. Moderately dry mucous membranes. NECK: Normal range of motion, supple without lymphadenopathy LUNGS: Breath sounds clear to auscultation bilaterally and equal. No wheezes rales or rhonchi. HEART: Regular rate and rhythm without murmurs ABDOMEN: Soft, CVA tenderness to palpation, otherwise nontender, normoactive bowel sounds. No guarding, no rebound. No masses appreciated. EXTREMITIES: Normal range of motion, no pitting or edema. No cyanosis. NEUROLOGICAL: No focal neurological deficits. Moves all extremities spontaneously and on command. PSYCH: Normal mood, normal affect. SKIN: Warm, Dry, normal turgor, no rashes or lesions noted. Course - Re-evaluation Re-evalutation: 03/06/17 01:16 Patient presents with acute onset of left flank pain and 1 episode of vomiting which has not been controlled after receiving Toradol here in the emergency department. Her urinalysis is consistent with acute pyelonephritis but also had an abnormally large amount of red blood cells and patient's clinical history is worrisome for an acute kidney stone. A CT without contrast was therefore obtained to demonstrate a 1.5 mm partially obstructing distal ureteral stone on the left. Given that this is worrisome for an infected kidney stone, I did discuss with a urologist at [facility] Dr. Rousseau who states given the small size of the stone, no indication for emergent transfer for urology at this time. I discussed with Dr. Mccallum who is agreeable to admission given that we have urology coverage in the morning. Patient has been started on IV fluids, IV ceftriaxone, and will be admitted. - Vital Signs Vital signs: Temp Pulse Resp BP Pulse Ox 98.8 F 88 18 126/39 H 94 03/06/17 02:17 03/06/17 02:17 03/06/17 02:17 03/06/17 02:17 03/06/17 02:17 - Laboratory Result Diagrams: 03/05/17 21:57 03/05/17 21:57 Laboratory results interpreted by me: 03/05/17 03/05/17 03/05/17 21:57 21:57 21:57 RDW 14.7 H Seg Neutrophils % 84.5 H Lymphocytes % 6.5 L Carbon Dioxide 21 L Direct Bilirubin 0.5 H Urine Protein 100 H Urine Ketones TRACE H Urine Blood LARGE H Urine Nitrite POSITIVE H Ur Leukocyte Esterase MODERATE H - Diagnostic Test Radiology reviewed: Reports reviewed Discharge - Discharge Clinical Impression: Pyelonephritis, Kidney stone on left side Condition: Fair Disposition: ADMITTED INPATIENT Admitting Provider: Hospitalist - [facility] Unit Admitted: NENA
[2017-03-06 01:37] LABS: ADD ON TESTING BLD IN LAB ACKNOWLEDGE
[2017-03-06 01:44] LABS: MAGNESIUM 1.9 mg/dL (1.6-2.3)
[2017-03-06] MEDS ORDERED: PROMETHAZINE HCL 25 MG TABLET PO PRN (02:53)
[2017-03-06] MEDS ORDERED: ENALAPRILAT DIHYDRATE INJ/PF 1.25 MG/1 ML SDV IV PRN (02:53)
[2017-03-06] MEDS ORDERED: ACETAMINOPHEN 325 MG TABLET PO PRN (02:55)
[2017-03-06] MEDS ORDERED: MAGNESIUM HYDROXIDE SUSP 30 ML UDCUP PO PRN (02:55)
[2017-03-06] MEDS ORDERED: NICOTINE 14 MG/24 HR PATCH.TD24 TD PRN (03:08)
[2017-03-06] MEDS ORDERED: THIAMINE HCL 100 MG in NORMAL SALINE 50 ML IV ONE (03:08)
--- NOTE | 2017-03-06 03:20 | PDOC H&P ---
History of Present Illness Admission Date/PCP: 03/06/17 01:45 None Patient complains of: Left flank pain, nausea History of Present Illness: GILL BARTHOLOMEW is a 37 year old obese -Martiniquais female with underlying hypertension, gout, mild reflux, easy bruising, occasional bronchitis, and anxiety, but with no chronic genitourinary tract problems, including no prior episodes of pyelonephritis or no known nephrolithiasis, who presents to the emergency room for evaluation of above complaint. Patient has been discussed with emergency room physician who evaluated the patient. Thursday of this week, began having mild left flank pain. Following day, the pain had increased, with steady progression throughout the day yesterday. Quite pronounced at times, increasing with certain movements. Nausea but no vomiting. Shaking chills. CT results noted. Prior to my being called, the emergency room physician did speak with Dr. Rousseau, on-call urologist at [facility]. He felt that with the small size of the stone, and its location, there was no indication for emergent transfer for urology at that time, but certainly to call back should her situation worsen. Also, we do have a urologist available starting at 7 AM this morning. Patient was somewhat hypertensive initially, likely secondary to pain. There has been no hypotension. Blood pressure now much more reasonable after treatment. Currently resting quietly, without pain Dictation via voice recognition software. Laboratory results are listed in [facility] and are reviewed. X-ray summary results are listed below, with full report(s) reviewed. . Social history/personal habits: . 2 daughters. Works at [employer]. Half pack of cigarettes per day. Fifth of whiskey every weekend. No illicit drug use. Allergies/adverse reactions are listed in [facility] and are reviewed. Home medications obtained by discussion with patient. REVIEW OF SYSTEMS: Constitutional: See history and present illness. Eyes: No vision complaints. ENT: No swallowing problems or complaints. Denies hearing loss. Pulmonary: No current complaints. Cardiovascular: No current complaints, including chest pain. Gastrointestinal: See history and present illness. Skin: No current complaints, including rashes. Hematologic: Easy bruising. Neurologic: No current complaints, including numbness or tingling. Musculoskeletal: No current or chronic joint complaints, such as arthritis. Psychiatric: Anxiety. Endocrine: No current complaints, including polyuria. Genitourinary: See history and present illness. PHYSICAL EXAMINATION: 5 feet 4 inches tall. 96 kg. BMI 36.3 kg/m. Blood pressure 120/70. 93% saturation on room air. Respirations are 18 and unlabored. Pulse 88 and regular. Temperature 98.8. Obese otherwise well-developed -Martiniquais female appearing approximately her stated age. Pleasant awake alert and cooperative. No obvious distress other than perhaps mildly anxious. 13-year-old daughter is asleep at her side; patient approves. Female emergency room nurse Nano is present. Skin is warm and dry. No grossly obvious evidence of rash in areas of skin examined. No subcutaneous nodules palpated. ENT: Hearing grossly normal to normal conversation. Tongue midline on protrusion pink and slightly tacky. Eyes: No scleral icterus. Pupils equal and reactive to light at 4 mm. [place] conjunctivae. Neck is supple and nontender to gentle active range of motion and palpation. Midline trachea. No palpable thyroid nodule mass enlargement or tenderness. Lymphatic: No palpable cervical or clavicular nodes. Neck and lymphatic exams limited by patient body habitus. Psychiatric: Reasonable insight into acute and chronic medical issues. Oriented to time location and why here. Lungs: Auscultation reveals clear and equal breath sounds bilaterally. No use of accessory respiratory muscles. Cardiovascular: Heart regular rate and rhythm, without gallop murmur or rub. No carotid or abdominal aortic bruits. No ankle or pedal edema. Faintly palpable dorsalis pedis pulses. Abdomen:soft somewhat obese nontender with positive bowel sounds. Unable to adequately evaluate abdomen for masses or organomegaly due to body habitus. No flank tenderness to palpation. Extremities: Feet are warm and dry. No calf tenderness to compression. No grossly obvious visual evidence of calf swelling. Gentle manipulation of lower extremities fails to reveal any obvious evidence of injury or instability to knees hips or ankles. Neurologic: Moves all 4 extremities grossly normally. Patellar reflexes absent. Absent Babinski. Light touch is intact at feet. Dorsiflexion and plantarflexion of feet 5 / 5 and symmetric. Past Medical History Cardiac Medical History: Reports: Hypertension Denies: Atrial Fibrillation, Congestive Heart Failure, Coronary Artery Disease, DVT, Myocardial Infarction, Hyperlipidema, Pulmonary Embolism Pulmonary Medical History: Reports: Bronchitis Denies: Asthma, Chronic Obstructive Pulmonary Disease (COPD), Sleep Apnea EENT Medical History: Denies: Eyes, Ears, Throat Neurological Medical History: Denies: Hemorrhagic CVA, Ischemic CVA, Seizures Endocrine Medical History: Denies: Diabetes Mellitus Type 1, Diabetes Mellitus Type 2, Hyperthyroidism, Hypothyroidism Renal/ Medical History: Reports: None GI Medical History: Reports: Gastroesophageal Reflux Disease - heartburn r/t per pt Denies: Cirrhosis, Hepatitis, Peptic Ulcer Disease Musculoskeltal Medical History: Reports: Gout Skin Medical History: Reports: None Psychiatric Medical History: Reports: Alcohol Dependency - Fifth of whiskey every weekend, General Anxiety Disorder, Tobacco Dependency - One half pack of cigarettes per day Denies: Depression, Substance Abuse Hematology: Reports: Anemia, Other - Easy bruising Infectious Medical History: Denies: Hepatitis B, Hepatitis C Past Surgical History Past Surgical History: Reports: Other - LEEP procedure Social History Information Source: Patient, Emergency Med Personnel, [facility] Records Smoking Status: Current Every Day Smoker Frequency of Alcohol Use: Heavy Drugs: None - Advance Directive Resuscitation Status: Full Code Surrogate healthcare decision maker:: Mother and sisters Family History Family History: Reviewed & Not Pertinent Parental Family History Reviewed: Yes - Mother with lupus. Father of myocardial infarction. Children Family History Reviewed: Yes - Daughter with eczema Sibling(s) Family History Reviewed.: Yes - Hypertension Medication/Allergy Home Medications: Famotidine [Pepcid 20 mg Tablet] 20 mg PO DAILYP PRN 03/06/17 Ibuprofen [Motrin 800 mg Tablet] 800 mg PO DAILYP PRN 03/06/17 Lisinopril/Hydrochlorothiazide [Lisinopril-Hctz 20-25 mg Tab] 1 tab PO DAILY 06/12 Allergies/Adverse Reactions: Penicillins Allergy (Verified 03/06/17 02:49) rash Physical Exam Vital Signs: Temp Pulse Resp BP Pulse Ox 98.8 F 88 18 126/39 H 94 03/06/17 02:17 03/06/17 02:17 03/06/17 02:17 03/06/17 02:17 03/06/17 02:17 Results Impressions: Abdomen/Pelvis CT 03/05/17 22:58 IMPRESSION: Mild left-sided hydronephrosis and hydroureter secondary to a 1.5 mm distal left ureteral stone. Assessment & Plan - Diagnosis (1) Tobacco dependency Is this a current diagnosis for this admission?: YesPlan: As needed nicotine patch. (2) Alcohol use Is this a current diagnosis for this admission?: YesPlan: 1 dose of parenteral thiamine. Then daily multivitamin, folic acid and thiamine p.o. Observe for evidence of alcohol withdrawal; none at present. (3) Hydronephrosis, left Is this a current diagnosis for this admission?: Yes (4) Pyelonephritis Is this a current diagnosis for this admission?: YesPlan: Has responded well to Rocephin. Continue same. Urology consult. I have strongly encouraged patient to be careful getting out of bed, to avoid a fall with injury. Knee high SCDs for DVT prophylaxis, along with subcutaneous Lovenox. Impression and plans were discussed with patient who concurs. Time spent in evaluation and management of patient: 73 minutes. (5) Ureteral calculus, left Is this a current diagnosis for this admission?: YesPlan: We will forego Flomax at this point in time, considering distal location of such a small stone, along with concerns for possible hypotension, in particular with pyelonephritis. (6) HTN (hypertension) Qualifiers: Hypertension type: essential hypertension Qualified Code(s): I10 - Essential (primary) hypertension Is this a current diagnosis for this admission?: YesPlan: Resume home medications as appropriate once these have been determined and reviewed.
[2017-03-06] MEDS ORDERED: THIAMINE HCL INJ 200 MG/2 ML VIAL ONE (04:12)
[2017-03-06 04:59] LABS: ABSOLUTE LYMPHOCYTES (AUTO) 1.1 10^3/uL (0.5-4.7); BASOPHILS % (AUTO) 0.3 % (0-2); EOSINOPHILS % (AUTO) 0.2 % (0-6); HEMATOCRIT 37.6 % (36.0-47.0); HEMOGLOBIN 12.4 g/dL (12.0-15.5); HGB HCT DIFFERENCE -0.4; MEAN CORPUSCULAR HEMOGLOBIN 31.2 pg (27.0-33.4); MEAN CORPUSCULAR HGB CONC 32.8 g/dL (32.0-36.0); MEAN CORPUSCULAR VOLUME 95 fl (80-97); MONOCYTES % (AUTO) 8.2 % (3-13); RED BLOOD COUNT 3.96 10^6/uL (3.72-5.28); RED CELL DISTRIBUTION WIDTH 14.7 % (11.5-14.0); SEGMENTED NEUTROPHILS % (AUTO) 82.3 % (42-78); WHITE BLOOD COUNT 12.2 10^3/uL (4.0-10.5)
[2017-03-06] MEDS: DEXTROSE 5%-NORMAL SALINE 1,000 ML IV PRN (04:59)
[2017-03-06 05:07] LABS: ANION GAP 9 (5-19); BLOOD UREA NITROGEN 9 mg/dL (7-20); CALCIUM 8.8 mg/dL (8.4-10.2); CARBON DIOXIDE 21 mmol/L (22-30); CHLORIDE 108 mmol/L (98-107); CREATININE RESULT 0.92 mg/dL (0.52-1.25); GLUCOSE 102 mg/dL (75-110); POTASSIUM 4.1 mmol/L (3.6-5.0); SODIUM 138.1 mmol/L (137-145)
[2017-03-06] MEDS ORDERED: (PENDING PHARMACY ID) (Lisinopril/Hydrochlorothiazide [Lisinopril-Hctz 20-25 Mg Tab] 1 TAB PO SCH ×2 (10:00)
[2017-03-06] MEDS: CEFTRIAXONE 1 GM/D5W RTU 1 GM/50 ML RTUPB IV SCH (11:34)
[2017-03-06] MEDS: LISINOPRIL 10 MG TABLET PO SCH (11:36)
[2017-03-06] MEDS: MULTIVITAMIN TABLET PO SCH (11:37)
[2017-03-06] MEDS: HYDROCHLOROTHIAZIDE 25 MG TABLET PO SCH (11:37)
[2017-03-06] MEDS: FOLIC ACID 1 MG TABLET PO SCH (11:37)
[2017-03-06] MEDS: THIAMINE HCL 100 MG TABLET PO SCH (11:38)
[2017-03-06] MEDS: ENOXAPARIN SODIUM INJ 40 MG/0.4 ML DISP.SYRIN SUBCUT SCH (11:38)
[2017-03-06] MEDS: DOCUSATE SODIUM 100 MG CAPSULE PO SCH ×2 (11:45→17:33)
[2017-03-07] MEDS: DEXTROSE 5%-NORMAL SALINE 1,000 ML IV PRN (03:22)
[2017-03-07] MEDS: KETOROLAC TROMETHAMINE INJ/PF 30 MG/1 ML SDV IV PRN ×2 (04:43→18:06)
[2017-03-07] MEDS ORDERED: IBUPROFEN 800 MG TABLET PO PRN (07:26)
[2017-03-07] MEDS ORDERED: FAMOTIDINE 20 MG TABLET PO PRN (07:26)
[2017-03-07] MEDS: HYDROCHLOROTHIAZIDE 25 MG TABLET PO SCH (09:05)
[2017-03-07] MEDS: CEFTRIAXONE 1 GM/D5W RTU 1 GM/50 ML RTUPB IV SCH (09:05)
[2017-03-07] MEDS: FOLIC ACID 1 MG TABLET PO SCH (09:05)
[2017-03-07] MEDS: LISINOPRIL 10 MG TABLET PO SCH (09:06)
[2017-03-07] MEDS: MULTIVITAMIN TABLET PO SCH (09:06)
[2017-03-07] MEDS: THIAMINE HCL 100 MG TABLET PO SCH (09:06)
[2017-03-07] MEDS: ENOXAPARIN SODIUM INJ 40 MG/0.4 ML DISP.SYRIN SUBCUT SCH (09:07)
[2017-03-07] MEDS: DOCUSATE SODIUM 100 MG CAPSULE PO SCH ×2 (09:07→17:33)
[2017-03-07 09:13] LABS: ABSOLUTE EOSINOPHILS # (AUTO) 0.2 10^3/uL (0.0-0.6); ABSOLUTE LYMPHOCYTES (AUTO) 0.9 10^3/uL (0.5-4.7); ABSOLUTE MONOCYTES (AUTO) 0.5 10^3/uL (0.1-1.4); ABSOLUTE NEUT (AUTO) 3.8 10^3/uL (1.7-8.2); BASOPHILS % (AUTO) 0.5 % (0-2); EOSINOPHILS % (AUTO) 2.9 % (0-6); HEMATOCRIT 34.8 % (36.0-47.0); HEMOGLOBIN 11.8 g/dL (12.0-15.5); HGB HCT DIFFERENCE 0.6; LYMPHOCYTES % (AUTO) 17.2 % (13-45); MEAN CORPUSCULAR HEMOGLOBIN 32.3 pg (27.0-33.4); MEAN CORPUSCULAR HGB CONC 34.1 g/dL (32.0-36.0); MEAN CORPUSCULAR VOLUME 95 fl (80-97); RED BLOOD COUNT 3.67 10^6/uL (3.72-5.28); RED CELL DISTRIBUTION WIDTH 14.5 % (11.5-14.0); SEGMENTED NEUTROPHILS % (AUTO) 69.4 % (42-78); WHITE BLOOD COUNT 5.4 10^3/uL (4.0-10.5)
[2017-03-07 09:25] LABS: ANION GAP 8 (5-19); BLOOD UREA NITROGEN 8 mg/dL (7-20); CARBON DIOXIDE 23 mmol/L (22-30); CHLORIDE 108 mmol/L (98-107); CREATININE RESULT 0.89 mg/dL (0.52-1.25); GLUCOSE 105 mg/dL (75-110); POTASSIUM 3.8 mmol/L (3.6-5.0); SODIUM 139.2 mmol/L (137-145)
--- NOTE | 2017-03-07 14:01 | PDOC PROGRESS REPORT ---
Subjective Progress Note for:: 03/07/17 Subjective:: Patient is seen on morning rounds. She is resting comfortably in bed. She states she is only having mild pain in the left flank. She denies any dysuria at the present time. She is voiding well. She denies any nausea or abdominal pain. She denies any fevers or chills. Remaining review of systems are unremarkable. Physical Exam Vital Signs: Temp Pulse Resp BP Pulse Ox 98.3 F 61 16 141/82 H 99 03/07/17 07:07 03/07/17 07:07 03/07/17 07:07 03/07/17 07:07 03/07/17 07:07 Intake & Output 03/06/17 03/07/17 03/08/17 06:59 06:59 06:59 Intake Total 440 1847 Output Total 200 1020 Balance 240 827 Weight 97 kg 98.4 kg General appearance: PRESENT: no acute distress, obese, well-developed, well- nourished Head exam: PRESENT: atraumatic Eye exam: PRESENT: conjunctiva pink, EOMI, PERRLA. ABSENT: scleral icterus Ear exam: PRESENT: bleeding Mouth exam: PRESENT: moist, tongue midline Neck exam: ABSENT: carotid bruit, JVD, lymphadenopathy, thyromegaly Respiratory exam: PRESENT: clear to auscultation shabbir. ABSENT: rales, rhonchi, wheezes Cardiovascular exam: PRESENT: RRR. ABSENT: diastolic murmur, rubs, systolic murmur Pulses: PRESENT: normal dorsalis pedis pul Vascular exam: PRESENT: normal capillary refill GI/Abdominal exam: PRESENT: normal bowel sounds, soft. ABSENT: distended, guarding, mass, organolmegaly, rebound, tenderness Rectal exam: PRESENT: deferred Extremities exam: PRESENT: full ROM. ABSENT: calf tenderness, clubbing, pedal edema Musculoskeletal exam: PRESENT: ambulatory, full ROM, tenderness - left flank Neurological exam: PRESENT: alert, awake, oriented to person, oriented to place , oriented to time, oriented to situation, CN II-XII grossly intact. ABSENT: motor sensory deficit Psychiatric exam: PRESENT: appropriate affect, normal mood. ABSENT: homicidal ideation, suicidal ideation Skin exam: PRESENT: dry, intact, warm. ABSENT: cyanosis, rash Results Laboratory Results: 03/07/17 08:40 03/07/17 08:40 03/07/17 03/07/17 08:40 08:40 WBC 5.4 RBC 3.67 L Hgb 11.8 L Hct 34.8 L MCV 95 MCH 32.3 MCHC 34.1 RDW 14.5 H Plt Count 203 Seg Neutrophils % 69.4 Lymphocytes % 17.2 Monocytes % 10.0 Eosinophils % 2.9 Basophils % 0.5 Absolute Neutrophils 3.8 Absolute Lymphocytes 0.9 Absolute Monocytes 0.5 Absolute Eosinophils 0.2 Absolute Basophils 0.0 Sodium 139.2 Potassium 3.8 Chloride 108 H Carbon Dioxide 23 Anion Gap 8 BUN 8 Creatinine 0.89 Est GFR ( Amer) > 60 Est GFR (Non-Af Amer) > 60 Glucose 105 Calcium 9.0 Impressions: Abdomen/Pelvis CT 03/05/17 22:58 IMPRESSION: Mild left-sided hydronephrosis and hydroureter secondary to a 1.5 mm distal left ureteral stone. Assessment & Plan - Diagnosis (1) Hydronephrosis, left Is this a current diagnosis for this admission?: YesPlan: Patient has no further CVA tenderness. She had a 1.5 mm stone at the distal ureter on presentation that has surely passed. No dysuria or fevers. Continue IV antibiotics for another 24 hrs (2) Kidney stone on left side Is this a current diagnosis for this admission?: YesPlan: As above #1 (3) Pyelonephritis Is this a current diagnosis for this admission?: YesPlan: Continue IV antibiotics for 24 hrs more then transition to oral (4) Anxiety Is this a current diagnosis for this admission?: Yes (5) HTN (hypertension) Qualifiers: Hypertension type: essential hypertension Qualified Code(s): I10 - Essential (primary) hypertension Is this a current diagnosis for this admission?: YesPlan: Continue home medications (6) DVT prophylaxis Is this a current diagnosis for this admission?: Yes - Time Time Spent with patient: 25-34 minutes Critical Time spent with patient: 15-24 minutes Smoking Cessation Education: 3 to 10 minutes Medications reviewed and adjusted accordingly: Yes Anticipated discharge: Home with Homehealth
[2017-03-08] MEDS ORDERED: ENALAPRILAT DIHYDRATE INJ/PF 1.25 MG/1 ML SDV IV ONE (05:15)
[2017-03-08 05:20] VITALS: BP 155/90
--- NOTE | 2017-03-08 08:41 | PDOC DISCHARGE SUMMARY ---
General - Admit/Disc Date/PCP Admission Date/Primary Care Provider: 03/06/17 02:55 Discharge Date: 03/08/17 - Discharge Diagnosis (1) Hydronephrosis, left Is this a current diagnosis for this admission?: YesSummary: Much improved. Will continue cipro 500 mg bid x 7 more days (2) Kidney stone on left side Is this a current diagnosis for this admission?: YesSummary: Resolved (3) Pyelonephritis Is this a current diagnosis for this admission?: YesSummary: As #1 (4) Anxiety Is this a current diagnosis for this admission?: Yes (5) HTN (hypertension) Is this a current diagnosis for this admission?: YesSummary: presently normotensive (6) DVT prophylaxis Is this a current diagnosis for this admission?: Yes - Additional Information Resuscitation Status: Full Code Discharge Diet: As Tolerated, Cardiac Discharge Activity: Activity As Tolerated, Balance Activity w/Rest Home Medications: Famotidine [Pepcid 20 mg Tablet] 20 mg PO DAILYP PRN 03/06/17 Lisinopril/Hydrochlorothiazide [Lisinopril-Hctz 20-25 mg Tab] 1 tab PO DAILY 06/12 Acetaminophen [Tylenol 325 mg Tablet] 650 mg PO Q4HP PRN tablet 03/08/17 Ciprofloxacin HCl [Cipro 500 mg Tablet] 500 mg PO Q12 #14 tablet 03/08/17 Ibuprofen [Motrin 800 mg Tablet] 800 mg PO DAILYP PRN #90 tablet 03/08/17 History of Present Illness Patient complains of: Left flank pain and fever History of Present Illness: GILL BARTHOLOMEW is a 37 year old obese -Kenyan female with underlying hypertension, gout, mild reflux, easy bruising, occasional bronchitis, and anxiety, but with no chronic genitourinary tract problems, including no prior episodes of pyelonephritis or no known nephrolithiasis, who presents to the emergency room for evaluation of above complaint. Patient has been discussed with emergency room physician who evaluated the patient. Thursday of this week, began having mild left flank pain. Following day, the pain had increased, with steady progression throughout the day yesterday. Quite pronounced at times, increasing with certain movements. Nausea but no vomiting. Shaking chills. CT results noted. Prior to my being called, the emergency room physician did speak with Dr. Rousseau, on-call urologist at [facility]. He felt that with the small size of the stone, and its location, there was no indication for emergent transfer for urology at that time, but certainly to call back should her situation worsen. Also, we do have a urologist available starting at 7 AM this morning. Patient was somewhat hypertensive initially, likely secondary to pain. There has been no hypotension. Blood pressure now much more reasonable after treatment. Hospital Course Hospital Course: Patient was admitted to [facility] on telemetry. She was started on IV broad spectrum antibiotics and pain control. The following morning her pain was much improved. She was able to eat and drink without nausea. Fevers resolved. Today she feels much improved and almost back to her baseline Physical Exam Vital Signs: Temp Pulse Resp BP Pulse Ox 98.6 F 69 20 155/90 H 100 03/08/17 08:05 03/08/17 08:05 03/08/17 08:05 03/08/17 08:05 03/08/17 08:05 Intake & Output 03/07/17 03/08/17 03/09/17 06:59 06:59 06:59 Intake Total 1847 1620 Output Total 1020 625 Balance 827 995 Weight 98.4 kg 97.8 kg General appearance: PRESENT: no acute distress, obese, well-developed, well- nourished Head exam: PRESENT: atraumatic, normocephalic Eye exam: PRESENT: conjunctiva pink, EOMI, PERRLA. ABSENT: scleral icterus Ear exam: PRESENT: normal external ear exam Mouth exam: PRESENT: moist, tongue midline Neck exam: ABSENT: carotid bruit, JVD, lymphadenopathy, thyromegaly Respiratory exam: PRESENT: clear to auscultation shabbir. ABSENT: rales, rhonchi, wheezes Cardiovascular exam: PRESENT: RRR. ABSENT: diastolic murmur, rubs, systolic murmur Pulses: PRESENT: normal dorsalis pedis pul Vascular exam: PRESENT: normal capillary refill GI/Abdominal exam: PRESENT: normal bowel sounds, soft, tenderness - left flank. ABSENT: distended, guarding, mass, organolmegaly, rebound Rectal exam: PRESENT: deferred Extremities exam: PRESENT: full ROM. ABSENT: calf tenderness, clubbing, pedal edema Neurological exam: PRESENT: alert, awake, oriented to person, oriented to place , oriented to time, oriented to situation, CN II-XII grossly intact. ABSENT: motor sensory deficit Psychiatric exam: PRESENT: appropriate affect, normal mood. ABSENT: homicidal ideation, suicidal ideation Skin exam: PRESENT: dry, intact, warm. ABSENT: cyanosis, rash Results Laboratory Results: 03/07/17 08:40 03/07/17 08:40 03/07/17 03/07/17 08:40 08:40 WBC 5.4 RBC 3.67 L Hgb 11.8 L Hct 34.8 L MCV 95 MCH 32.3 MCHC 34.1 RDW 14.5 H Plt Count 203 Seg Neutrophils % 69.4 Lymphocytes % 17.2 Monocytes % 10.0 Eosinophils % 2.9 Basophils % 0.5 Absolute Neutrophils 3.8 Absolute Lymphocytes 0.9 Absolute Monocytes 0.5 Absolute Eosinophils 0.2 Absolute Basophils 0.0 Sodium 139.2 Potassium 3.8 Chloride 108 H Carbon Dioxide 23 Anion Gap 8 BUN 8 Creatinine 0.89 Est GFR ( Amer) > 60 Est GFR (Non-Af Amer) > 60 Glucose 105 Calcium 9.0 03/06/17 03:35 Nasophary (Mrs[facility] Only) MRSA Surveillance Culture - Final NO MRSA RECOVERED Impressions: Abdomen/Pelvis CT 03/05/17 22:58 IMPRESSION: Mild left-sided hydronephrosis and hydroureter secondary to a 1.5 mm distal left ureteral stone. Qualifiers PATEINT BEING DISCHARGED WITH ANY OF THE FOLLOWING DIAGNOSIS?: No Plan Discharge Plan: Home with family
[2017-03-08] MEDS ORDERED: CIPROFLOXACIN HCL 500 MG TABLET PO SCH (10:00)
== END 2017-03-08 08:35 | disposition home or self-care (01) | DRG 690 ==
LOC: ER 21:12 → EH 03-06 01:45 → UNDOADMIN 03-06 01:45 → EH 03-06 02:55 → 3S 03-06 03:13
PROVIDERS: ADMIT Family Medicine; ATTEND Family Medicine
DX: N13.6 Pyonephrosis (principal); I10 Essential (primary) hypertension; K21.9 Gastro-esophageal reflux disease without esophagitis; M10.9 Gout, unspecified; F41.9 Anxiety disorder, unspecified; Z79.899 Other long term (current) drug therapy; F17.210 Nicotine dependence, cigarettes, uncomplicated; Z88.0 Allergy status to penicillin
CPT/HCPCS: 36415; 74176; 80048; 80053; 81001; 81025; 83690; 83735; 85025; 87040; 87086; 96365; 96375; 99285; J0696; J1650; J1885; J2270; J3411; J3490; J7030

== ENCOUNTER 2018-07-06 00:40 | Emergency (ER) | payer MEDICAID ==
[2018-07-06] MEDS ORDERED: IPRATROPIUM/ALBUTEROL 0.5-2.5 MG/3 ML AMPUL NEB ONE (01:31)
[2018-07-06] MEDS ORDERED: PSEUDOEPHEDRINE HCL 30 MG TABLET PO ONE (01:31)
[2018-07-06] MEDS ORDERED: IBUPROFEN 600 MG TABLET PO ONE (01:32)
[2018-07-06] MEDS ORDERED: OXYMETAZOLINE HCL 0.05% NASAL SPRAY 15 ML BOTTLE NASL ONE (01:32)
[2018-07-06] MEDS ORDERED: HYDROCHLOROTHIAZIDE 12.5 MG TABLET PO ONE (01:33)
[2018-07-06] MEDS ORDERED: LISINOPRIL 10 MG TABLET PO ONE (01:33)
--- NOTE | 2018-07-06 01:39 | ER Document Report ---
ED General - General Chief Complaint: Chest Pressure Stated Complaint: CHEST PAIN Time Seen by Provider: 07/06/18 01:06 Mode of Arrival: Ambulatory Information source: Patient, [facility] Records Notes: 38-year-old female with hypertension, bronchitis, gout presents with complaint of cough, shortness of breath and chest pain that started 3 days prior to arrival. Patient states that she has had a productive persistent cough for 3 days. Patient's chest pain has also been constant and is described as pressure- like. Patient shortness of breath is accompanied with episodes of continuous coughing. Patient has associated nasal congestion, sore throat and headache. Patient admits to not taking her lisinopril/hydrochlorothiazide in 2 days because she was concerned about mixing it with the [id number] medications she was taking for her cough. Patient does use tobacco and states she smokes approximately 10 cigarettes/day. She denies sick contacts. TRAVEL OUTSIDE OF THE [place] IN LAST 30 DAYS: No - HPI Onset: Other Onset/Duration: Gradual, Persistent, Worse Quality of pain: Burning, Pressure Severity: Mild Associated symptoms: Chest pain, Productive cough, Headache, Rhinnorhea, Shortness of breath, Sore throat. denies: Diarrhea, Fever, Hurts to breath, Nausea, Vomiting Exacerbated by: Coughing Relieved by: Denies Similar symptoms previously: Yes Recently seen / treated by doctor: No - Related Data Allergies/Adverse Reactions: Penicillins Allergy (Verified 03/06/17 02:49) rash Past Medical History - General Information source: Patient, [facility] Records - Social History Smoking Status: Current Every Day Smoker Cigarette use (# per day): Yes - 10 Smoking Education Provided: Yes - Smoking cessation counseling was provided for 4 minutes at the bedside Frequency of alcohol use: Occasional Drug Abuse: None Lives with: Family Family History: Reviewed & Not Pertinent Patient has suicidal ideation: No Patient has homicidal ideation: No - Past Medical History Cardiac Medical History: Reports: Hx Hypertension Denies: Hx Atrial Fibrillation, Hx Congestive Heart Failure, Hx Coronary Artery Disease, Hx DVT, Hx Heart Attack, Hx Hypercholesterolemia, Hx Pulmonary Embolism Pulmonary Medical History: Reports: Hx Bronchitis Denies: Hx Asthma, Hx COPD, Hx Sleep Apnea Neurological Medical History: Denies: Hx Seizures Endocrine Medical History: Denies: Hx Diabetes Mellitus Type 1, Hx Diabetes Mellitus Type 2, Hx Hyperthyroidism, Hx Hypothyroidism Renal/ Medical History: Denies: Hx Peritoneal Dialysis GI Medical History: Reports: Hx Gastroesophageal Reflux Disease - heartburn r/t per pt. Denies: Hx Cirrhosis, Hx Hepatitis Musculoskeletal Medical History: Reports Hx Gout Psychiatric Medical History: Denies: Hx Depression Infectious Medical History: Denies: Hx Hepatitis Past Surgical History: Reports: Hx Gynecologic Surgery - leep, Other - LEEP procedure - Immunizations Hx Diphtheria, Pertussis, Tetanus Vaccination: No Review of Systems - Review of Systems Constitutional: Recent illness. denies: Fever EENT: Nose congestion, Sinus pressure, Throat pain. denies: Ear pain, Difficulty swallowing Cardiovascular: Chest pain - With coughing only. denies: Lightheaded Respiratory: Cough, Short of breath Gastrointestinal: denies: Abdominal pain, Nausea, Poor appetite Genitourinary: denies: Flank pain Female Genitourinary: No symptoms reported Musculoskeletal: denies: Back pain Skin: denies: Rash Neurological/Psychological: Headaches. denies: Confusion -: Yes All other systems reviewed and negative Physical Exam - Vital signs Vitals: Temp Pulse Resp BP Pulse Ox 98.9 F 93 18 213/137 H 97 07/06/18 00:52 07/06/18 00:52 07/06/18 00:52 07/06/18 00:52 07/06/18 00:52 Interpretation: Hypertensive - Noncompliant with her blood pressure medication for 48 hours. No: Hypoxic, Febrile - Notes Notes: PHYSICAL EXAMINATION: GENERAL: Well-appearing, well-nourished and in no acute distress. HEAD: Atraumatic, normocephalic. EYES: Pupils equal round and reactive to light, extraocular movements intact, conjunctiva are normal. Edematous nasal turbinates. ENT: Nares patent, oropharynx clear without exudates. Moist mucous membranes. NECK: Normal range of motion, supple without lymphadenopathy LUNGS: Mild expiratory wheezing in the right upper lung field. No accessory muscle use. No respiratory distress. HEART: Regular rate and rhythm without murmurs ABDOMEN: Soft, nontender, nondistended abdomen. No guarding, no rebound. No masses appreciated. Female : deferred Musculoskeletal: Normal range of motion, no pitting or edema. No cyanosis. NEUROLOGICAL: Cranial nerves grossly intact. Normal speech, normal gait. Normal sensory, motor exams PSYCH: Normal mood, normal affect. SKIN: Warm, Dry, normal turgor, no rashes or lesions noted. Course - Re-evaluation Re-evalutation: Chest X-Ray 07/06/18 01:32 IMPRESSION: Heart size at the upper limits of normal. Lungs are clear copyright 2011 [employer]- All Rights Reserved Temp Pulse Resp BP Pulse Ox 98.9 F 93 18 183/132 H 95 07/06/18 00:52 07/06/18 00:52 07/06/18 01:31 07/06/18 01:31 07/06/18 01:31 38-year-old female with hypertension, bronchitis presents with 3 days of cough, nasal congestion, chest pain with coughing, shortness of breath with coughing and sore throat. Upon arrival vital signs reviewed and patient is afebrile, not tachycardic or hypoxic. She is hypertensive but admits to not taking her blood pressure medication in 2 days. Patient was given her home medication and prior to arrival repeat blood pressure was 136/74. Patient's presentation is most consistent with a viral upper respiratory infection. Patient is overall well appearance, vitals within normal limits, well-hydrated. Patient denies any neck pain, and has no evidence of meningismus on examination. Patient has mild wheezing which resolved after receiving a breathing treatment. No evidence of respiratory distress. Chest x-ray shows no evidence of CHF, pneumonia, COPD. Based on clinical exam and history, I do not suspect an acute pneumonia, meningitis, strep pharyngitis, or an acute encephalitis. No laboratory testing is indicated at this time. Will discharge patient with return precautions and followup recommendations. They are in agreement this plan have verbalized understanding return precautions. Patient did receive Afrin, albuterol, prednisone. Patient was evaluated and treated as appropriate for the patient's presenting symptoms and complaint, with consideration of any critical or life threatening conditions that may be associated with their obtained history and exam as noted above. All results were discussed with patient. Patient provided the opportunity to ask questions, and express concerns. Patient was educated on treatments based on their presumed diagnosis as noted above. At this time we will discharge the patient with return precautions and follow-up recommendations. Verbal discharge instructions given a the bedside. Medication warnings reviewed. Patient is in agreement with this plan and has verbalized understanding of return precautions. After careful consideration I feel that that patient can be safely discharged from the emergency department, they were advised to followup with a primary care physician in 2-3 days. Dictation on this chart was performed using voice recognition software and may result in unintended grammatical, spelling, syntax or errors. 07/06/18 04:33 Patient reevaluated states her headache has improved. Her cough has improved as well as her shortness of breath. She is resting comfortably. 07/06/18 04:38 07/06/18 04:40 07/06/18 04:58 07/06/18 04:59 - Vital Signs Vital signs: Temp Pulse Resp BP Pulse Ox 98.9 F 93 21 H 136/74 H 98 07/06/18 00:52 07/06/18 00:52 07/06/18 04:30 07/06/18 04:30 07/06/18 04:30 - Diagnostic Test Radiology reviewed: Image reviewed, Reports reviewed - Finally see you at some time ago - EKG Interpretation by Me EKG shows normal: Sinus rhythm Rate: Normal Rhythm: NSR Voltage: Consistant with LVH Discharge - Discharge Clinical Impression: Nasal congestion, Sinus headache, Cough, Tobacco dependency HTN (hypertension) Qualifiers: Hypertension type: unspecified Qualified Code(s): I10 - Essential (primary) hypertension Upper respiratory infection Qualifiers: URI type: unspecified URI Qualified Code(s): J06.9 - Acute upper respiratory infection, unspecified Condition: Good Disposition: HOME, SELF-CARE Instructions: Upper Respiratory Illness ([facility]), Viral Syndrome ([facility]) Additional Instructions: Your symptoms are most likely due to a viral infection it should resolve over the next 7-14 days. You should take [id number] guanfacine per bottle instructions to help thin the mucus. For nasal congestion: I would recommend that you get vqvj-gnj-lxryxxd oxymetazoline also known is afrin. Use only per bottle instructions and be sure to never use this for more than 3 days if you can develop severe rebound congestion. You may also use tylenol or ibuprofen as needed for aches and thorat discomfort. Please be sure to drink plenty of fluids and get rest. Return to the emergency department he began having difficulty breathing, chest pain, persistent vomiting, or any other symptoms that are concerning to you. Follow up with your [id number] hours for further care or return to the ED IMMEDIATELY if symptoms worsen or you have any concerns. If you cannot afford to follow up with your primary care physician a list of low cost clinics have been provided at the end of your discharge papers as well. Most prescribed medications have multiple side effects. The safest thing to do is when filling your prescription speak to your pharmacist regarding possible interactions with your normal home medications and over the counter medications such as Ibuprofen, Tylenol, Benadryl. If you experience any symptoms that cause you discomfort or concern you should discontinue the medication immediately and return to the emergency room or call your primary care physician. Prescriptions: Acetaminophen/Chlorpheniramine [Coricidin Cold & Flu Tablet] 1 tab PO Q6H PRN # 1 pkg PRN Reason: Prednisone [Deltasone 20 mg Tablet] 3 tab PO DAILY 5 Days #15 tablet Forms: Elevated Blood Pressure, Smoking Cessation Education, Return to Work
--- NOTE | 2018-07-06 02:02 | RADIOLOGY REPORT (SQ) ---
EXAM DESCRIPTION: XR CHEST 2 VIEWS COMPLETED DATE/TME: 07/06/2018 01:32 CLINICAL HISTORY: 38 years, Female, cough sob COMPARISON: None. NUMBER OF VIEWS: 2 TECHNIQUE: Frontal and lateral views of the chest LIMITATIONS: None. FINDINGS: Heart size at the upper limits of normal. Lungs are clear. No pneumothorax IMPRESSION: Heart size at the upper limits of normal. Lungs are clear copyright 2010 [employer]- All Rights Reserved
[2018-07-06] MEDS ORDERED: ALBUTEROL SULFATE HFA (90 MCG/PUFF) 8 GM MDI (1 MDI/ER DISP) IH PRN (04:34)
[2018-07-06] MEDS ORDERED: PREDNISONE 20 MG TABLET PO ONE (04:35)
[2018-07-06 04:40] VITALS: BP 136/74
--- NOTE | 2018-07-06 13:08 | EKG REPORT ---
SEVERITY:- ABNORMAL ECG - SINUS RHYTHM CONSIDER LEFT VENTRICULAR HYPERTROPHY : Confirmed by: Starr Patel MD 06-Jul-2018 13:07:52
== END 2018-07-06 04:50 | disposition home or self-care (01) ==
LOC: ER 00:40
DX: J06.9 Acute upper respiratory infection, unspecified (principal); J40 Bronchitis, not specified as acute or chronic; I10 Essential (primary) hypertension; T46.4X6A Underdosing of angiotensin-converting-enzyme inhibitors, initial encounter; T50.2X6A Underdosing of carbonic-anhydrase inhibitors, benzothiadiazides and other diuretics, initial encounter; Z91.128 Patient's intentional underdosing of medication regimen for other reason; Z91.14 Patient's other noncompliance with medication regimen; J34.89 Other specified disorders of nose and nasal sinuses; R51 Headache; R05 Cough; R07.89 Other chest pain; R06.02 Shortness of breath; R09.81 Nasal congestion; J02.9 Acute pharyngitis, unspecified; Z88.0 Allergy status to penicillin; F17.210 Nicotine dependence, cigarettes, uncomplicated
CPT/HCPCS: 93005; 99406; 94640; 99285; 71046; 93010; J3490 ×4; J7512; J7620

== ENCOUNTER 2019-02-16 13:32 | Emergency (ER) | payer MEDICAID ==
[2019-02-16] MEDS ORDERED: HYDROCHLOROTHIAZIDE 12.5 MG TABLET PO ONE ×2 (14:07→20:21)
[2019-02-16] MEDS ORDERED: LISINOPRIL 10 MG TABLET PO ONE (14:07)
--- NOTE | 2019-02-16 14:10 | ER Document Report ---
ED Medical Screen (RME) - General Chief Complaint: Dizziness Stated Complaint: DIZZINESS Time Seen by Provider: 02/16/19 13:59 Mode of Arrival: Ambulatory Information source: Patient Notes: 39-year-old female presented to ED for elevated blood pressure. She states she went to her primary care doctor because she was out of medicine and she was dizzy for the last couple days. She states that they did not give her blood pressure medicine but instead sent her to the emergency room for the high blood pressure. She states she has no other symptoms except for that she was dizzy from the high blood pressure. She states she takes lisinopril hydrochlorothiazide and she thinks is 20/25 I did look in the chart and that is the last dose that I think given so I did give her a dose of that at this time and will get some blood in urine to ensure that this fixes her dizziness. She states she does smoke a half a pack a day drinks on the weekend and drank last night because it was her birthday other than that she does drink excessively. 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 Patient is alert oriented respirations regular and unlabored speaking in full sentences. She states she is also lost quite a bit of weight in the last couple months. She went from over 200-1 92 and is concerned about this because she has not been exercising. I have greeted and performed a rapid initial assessment of this patient. A comprehensive ED assessment and evaluation of the patient, analysis of test results and completion of medical decision making process will be conducted by an additional ED providers. Dictation of this chart was performed using voice recognition software; therefore, there may be some unintended grammatical errors. TRAVEL OUTSIDE OF THE [place] IN LAST 30 DAYS: No - Related Data Allergies/Adverse Reactions: Penicillins Allergy (Verified 02/16/19 13:36) rash Past Medical History - Past Medical History Cardiac Medical History: Reports: Hx Hypertension Denies: Hx Atrial Fibrillation, Hx Congestive Heart Failure, Hx Coronary Artery Disease, Hx DVT, Hx Heart Attack, Hx Hypercholesterolemia, Hx Pulmonary Embolism Pulmonary Medical History: Reports: Hx Bronchitis Denies: Hx Asthma, Hx COPD, Hx Sleep Apnea Neurological Medical History: Denies: Hx Seizures Endocrine Medical History: Denies: Hx Diabetes Mellitus Type 1, Hx Diabetes Mellitus Type 2, Hx Hyperthyroidism, Hx Hypothyroidism Renal/ Medical History: Denies: Hx Peritoneal Dialysis GI Medical History: Reports: Hx Gastroesophageal Reflux Disease - heartburn r/t per pt. Denies: Hx Cirrhosis, Hx Hepatitis Musculoskeltal Medical History: Reports Hx Gout Psychiatric Medical History: Denies: Hx Depression Infectious Medical History: Denies: Hx Hepatitis Past Surgical History: Reports: Hx Gynecologic Surgery - leep, Other - LEEP procedure - Immunizations Hx Diphtheria, Pertussis, Tetanus Vaccination: No Physical Exam - Vital signs Vitals: Temp Pulse Resp BP Pulse Ox 98.5 F 82 16 174/129 H 96 02/16/19 13:40 02/16/19 13:40 02/16/19 13:40 02/16/19 13:40 02/16/19 13:40 Course - Vital Signs Vital signs: Temp Pulse Resp BP Pulse Ox 98.5 F 82 16 174/129 H 96 02/16/19 13:40 02/16/19 13:40 02/16/19 13:40 02/16/19 13:40 02/16/19 13:40
[2019-02-16 15:28] LABS: ABSOLUTE EOSINOPHILS # (AUTO) 0.3 10^3/uL (0.0-0.6); ABSOLUTE LYMPHOCYTES (AUTO) 1.5 10^3/uL (0.5-4.7); ABSOLUTE MONOCYTES (AUTO) 0.4 10^3/uL (0.1-1.4); ABSOLUTE NEUT (AUTO) 2.7 10^3/uL (1.7-8.2); BASOPHILS % (AUTO) 0.6 % (0-2); EOSINOPHILS % (AUTO) 5.6 % (0-6); HEMOGLOBIN 12.4 g/dL (12.0-15.5); LYMPHOCYTES % (AUTO) 31.6 % (13-45); MEAN CORPUSCULAR HEMOGLOBIN 29.5 pg (27.0-33.4); MEAN CORPUSCULAR HGB CONC 32.6 g/dL (32.0-36.0); MEAN CORPUSCULAR VOLUME 91 fl (80-97); MONOCYTES % (AUTO) 7.4 % (3-13); PLATELET COUNT 251 10^3/uL (150-450); RED CELL DISTRIBUTION WIDTH 15.4 % (11.5-14.0); SEGMENTED NEUTROPHILS % (AUTO) 54.8 % (42-78); TOTAL CELLS COUNTED % (AUTO) 100 %; WHITE BLOOD COUNT 4.9 10^3/uL (4.0-10.5)
[2019-02-16 15:48] LABS: ALANINE AMINOTRANSFERASE 29 U/L (9-52); ALBUMIN 4.4 g/dL (3.5-5.0); ALKALINE PHOSPHATASE 71 U/L (38-126); ANION GAP 9 (5-19); ASPARTATE AMINO TRANSFERASE 37 U/L (14-36); BILIRUBIN,DIRECT 0.2 mg/dL (0.0-0.4); BILIRUBIN,TOTAL 0.4 mg/dL (0.2-1.3); BLOOD UREA NITROGEN 8 mg/dL (7-20); CALCIUM 9.2 mg/dL (8.4-10.2); CARBON DIOXIDE 29 mmol/L (22-30); CHLORIDE 108 mmol/L (98-107); GLUCOSE 90 mg/dL (75-110); POTASSIUM 3.9 mmol/L (3.6-5.0); TOTAL PROTEIN 8.1 g/dL (6.3-8.2)
[2019-02-16 20:17] LABS: APPEARANCE,URINE CLEAR; BILIRUBIN,URINE NEGATIVE (NEGATIVE); COLOR,URINE STRAW; GLUCOSE, URINE NEGATIVE (NEGATIVE); KETONES,URINE NEGATIVE (NEGATIVE); LEUKOCYTE ESTERASE,URINE NEGATIVE (NEGATIVE); NITRITE,URINE NEGATIVE (NEGATIVE); PROTEIN,URINE NEGATIVE (NEGATIVE); URINE SPECIFIC GRAVITY 1.011; UROBILINOGEN,URINE NEGATIVE mg/dL (<2.0)
[2019-02-16] MEDS ORDERED: ONDANSETRON 4 MG TAB.RAPDIS PO ONE (20:21)
[2019-02-16] MEDS ORDERED: ONDANSETRON ODT 4 MG TAB (6 TAB/ER DISP) PO PRN (20:21)
--- NOTE | 2019-02-16 20:27 | ER Document Report ---
ED General - General Chief Complaint: Dizziness Stated Complaint: DIZZINESS Time Seen by Provider: 02/16/19 13:59 Mode of Arrival: Ambulatory Notes: Patient is a 39-year-old female that comes emergency department for chief complaint of elevated blood pressure. She states that she went to her primary care provider because she ran out of her prescriptions, however because of her elevated blood pressure she was sent to the emergency department. She states that she has intermittently felt lightheaded and occasionally dizzy over the past day or 2, especially this morning, however she also states that she became intoxicated from alcohol because it was her birthday last night and she is a little bit hung over. She states she has not eaten much today and she has had a little bit of nausea. She denies headache. She denies chest pain. She denies focal numbness or weakness. She denies any current complaints. She is supposed be taking lisinopril and hydrochlorothiazide . She smokes. Denies medical problems otherwise. TRAVEL OUTSIDE OF THE [place] IN LAST 30 DAYS: No - Related Data Allergies/Adverse Reactions: Penicillins Allergy (Verified 02/16/19 13:36) rash Past Medical History - General Information source: Patient - Social History Smoking Status: Current Every Day Smoker Smoking Education Provided: Yes - <3 min Frequency of alcohol use: Social Drug Abuse: None Lives with: Family Family History: Reviewed & Not Pertinent Patient has suicidal ideation: No Patient has homicidal ideation: No - Past Medical History Cardiac Medical History: Reports: Hx Hypertension Denies: Hx Atrial Fibrillation, Hx Congestive Heart Failure, Hx Coronary Artery Disease, Hx DVT, Hx Heart Attack, Hx Hypercholesterolemia, Hx Pulmonary Embolism Pulmonary Medical History: Reports: Hx Bronchitis Denies: Hx Asthma, Hx COPD, Hx Sleep Apnea Neurological Medical History: Denies: Hx Seizures Endocrine Medical History: Denies: Hx Diabetes Mellitus Type 1, Hx Diabetes Mellitus Type 2, Hx Hyperthyroidism, Hx Hypothyroidism Renal/ Medical History: Denies: Hx Peritoneal Dialysis GI Medical History: Reports: Hx Gastroesophageal Reflux Disease - heartburn r/t per pt. Denies: Hx Cirrhosis, Hx Hepatitis Musculoskeletal Medical History: Reports Hx Gout Psychiatric Medical History: Denies: Hx Depression Infectious Medical History: Denies: Hx Hepatitis Past Surgical History: Reports: Hx Gynecologic Surgery - leep, Other - LEEP procedure - Immunizations Hx Diphtheria, Pertussis, Tetanus Vaccination: Yes Review of Systems - Review of Systems Constitutional: See HPI EENT: No symptoms reported Cardiovascular: No symptoms reported Respiratory: No symptoms reported Gastrointestinal: See HPI Genitourinary: No symptoms reported Female Genitourinary: No symptoms reported Musculoskeletal: No symptoms reported Skin: No symptoms reported Hematologic/Lymphatic: No symptoms reported Neurological/Psychological: See HPI Physical Exam - Vital signs Vitals: Temp Pulse Resp BP Pulse Ox 98.5 F 82 16 174/129 H 96 02/16/19 13:40 02/16/19 13:40 02/16/19 13:40 02/16/19 13:40 02/16/19 13:40 - Notes Notes: GENERAL: Alert, interacts well. No acute distress. HEAD: Normocephalic, atraumatic. EYES: Pupils equal, round, and reactive to light. Extraocular movements intact. ENT: Oral mucosa moist, tongue midline. Oropharynx unremarkable. Airway patent. LUNGS: Clear to auscultation bilaterally, no wheezes, rales, or rhonchi. No respiratory distress. HEART: Regular rate and rhythm. No murmur ABDOMEN: Soft, non-tender. Non-distended. Bowel sounds present in all 4 quadrants. GENITOURINARY: Deferred EXTREMITIES: Moves all 4 extremities spontaneously. No edema, normal radial and dorsalis pedis pulses bilaterally. No cyanosis. BACK: no cervical, thoracic, lumbar midline tenderness. No saddle anesthesia, normal distal neurovascular exam. Moves all extremities in full range of motion. NEUROLOGICAL: Alert and oriented x3. Normal speech. Cranial nerves II through XII grossly intact. PSYCH: Patient frequently makes anxious expressions, however otherwise she has a normal mood and affect SKIN: Warm, dry, normal turgor. No rashes or lesions noted. Course - Re-evaluation Re-evalutation: Patient is hypertensive, however on my evaluation she has no symptoms including lightheadedness/dizziness, headache, chest pain, nausea. She states she has not felt good all day, however she did drink heavily last night reportedly. Her AST is minimally elevated. Her work-up is unremarkable otherwise including normal renal functioning. Patient given 20 mg of lisinopril and 12.5 mg of HCTZ, she is supposed to be on 25 mg so she was given an additional 12.5 mg, she is out of her current medication. She also reports concerns about weight loss that she is not intending, however this is been gradual since last year and not severe reportedly. She also denies any symptoms out of the ordinary otherwise. She does have primary care but she is requesting a follow-up because she is switching. She was provided with a new primary care referral, provided with her lisinopril and HCTZ medications, provided with Zofran on her request because of intermittent nausea today, and discussed work-up in detail. Discussed return precautions in detail. Patient states satisfaction agreement. Stable at time of discharge. - Vital Signs Vital signs: Temp Pulse Resp BP Pulse Ox 98.7 F 80 18 183/112 H 97 02/16/19 20:56 02/16/19 20:56 02/16/19 20:56 02/16/19 20:56 02/16/19 20:56 - Laboratory Result Diagrams: 02/16/19 14:50 02/16/19 14:50 Laboratory results interpreted by me: 02/16/19 02/16/19 14:50 14:50 RDW 15.4 H Sodium 145.7 H Chloride 108 H AST 37 H Discharge - Discharge Clinical Impression: Uncontrolled hypertension Condition: Stable Disposition: HOME, SELF-CARE Additional Instructions: Your evaluation and laboratory work-up did not show any concerning findings at this time. Take your blood pressure medications as prescribed, stop smoking. Follow-up with your primary care for additional evaluation management including for the weight loss you have had. Return if you worsen including severe headache, chest pain, or any other concerning or worsening symptoms. Prescriptions: Lisinopril/Hydrochlorothiazide [Lisinopril-Hctz 20-25 mg Tab] 1 each PO DAILY #30 tablet Forms: Return to Work
[2019-02-16 20:56] VITALS: BP 183/112
== END 2019-02-16 20:58 | disposition home or self-care (01) ==
LOC: ER 13:32
DX: I10 Essential (primary) hypertension (principal); R42 Dizziness and giddiness; R11.0 Nausea; R74.0 Nonspecific elevation of levels of transaminase and lactic acid dehydrogenase [LDH]; R63.4 Abnormal weight loss; F17.200 Nicotine dependence, unspecified, uncomplicated; Z88.0 Allergy status to penicillin
CPT/HCPCS: 99283; 36415; 85025; 80053; 81001; S0119; J3490

== ENCOUNTER 2019-05-23 10:13 | Emergency (ER) | payer MEDICAID ==
[2019-05-23] MEDS ORDERED: ASPIRIN 81 MG TABLET, CHEWABLE PO ONE (10:32)
--- NOTE | 2019-05-23 10:35 | ER Document Report ---
ED Medical Screen (RME) - General Chief Complaint: Chest Pain Stated Complaint: CHEST PAIN Time Seen by Provider: 05/23/19 10:30 Notes: Patient is a 39-year-old male with a past medical history of hypertension who presents the emergency department with chest pain. She states around 2:00 in the morning she woke up and felt stabs in the middle of her chest and in her back. Patient also states that she felt vomited 2 days ago. Patient had Zofran at home and took it. Patient denies any nausea at this time. Patient states that she feels lightheaded. Patient states that she took her blood pressure medication this morning around 0530. Exam: S1-S2. Lung sounds clear throughout. I have greeted and performed a rapid initial assessment of this patient. A comprehensive ED assessment and evaluation of the patient, analysis of test resu lts and completion of medical decision making process will be conducted by an additional ED providers. TRAVEL OUTSIDE OF THE [place] IN LAST 30 DAYS: No - Related Data Allergies/Adverse Reactions: Penicillins Allergy (Verified 02/16/19 13:36) rash Past Medical History - Past Medical History Cardiac Medical History: Reports: Hx Hypertension Denies: Hx Atrial Fibrillation, Hx Congestive Heart Failure, Hx Coronary Artery Disease, Hx DVT, Hx Heart Attack, Hx Hypercholesterolemia, Hx Pulmonary Embolism Pulmonary Medical History: Reports: Hx Bronchitis Denies: Hx Asthma, Hx COPD, Hx Sleep Apnea Neurological Medical History: Denies: Hx Seizures Endocrine Medical History: Denies: Hx Diabetes Mellitus Type 1, Hx Diabetes Mellitus Type 2, Hx Hyperthyroidism, Hx Hypothyroidism Renal/ Medical History: Denies: Hx Peritoneal Dialysis GI Medical History: Reports: Hx Gastroesophageal Reflux Disease - heartburn r/t per pt. Denies: Hx Cirrhosis, Hx Hepatitis Musculoskeltal Medical History: Reports Hx Gout Psychiatric Medical History: Denies: Hx Depression Infectious Medical History: Denies: Hx Hepatitis Past Surgical History: Reports: Hx Gynecologic Surgery - leep, Other - LEEP procedure - Immunizations Hx Diphtheria, Pertussis, Tetanus Vaccination: Yes Physical Exam - Vital signs Vitals: Temp Pulse Resp BP Pulse Ox 98.1 F 81 16 208/123 H 99 05/23/19 10:23 05/23/19 10:23 05/23/19 10:23 05/23/19 10:23 05/23/19 10:23 Course - Vital Signs Vital signs: Temp Pulse Resp BP Pulse Ox 98.1 F 81 16 208/123 H 99 05/23/19 10:23 05/23/19 10:23 05/23/19 10:23 05/23/19 10:23 05/23/19 10:23
[2019-05-23 11:12] LABS: ABSOLUTE EOSINOPHILS # (AUTO) 0.1 10^3/uL (0.0-0.6); ABSOLUTE MONOCYTES (AUTO) 0.3 10^3/uL (0.1-1.4); ABSOLUTE NEUT (AUTO) 3.2 10^3/uL (1.7-8.2); BASOPHILS % (AUTO) 0.6 % (0-2); EOSINOPHILS % (AUTO) 1.5 % (0-6); HEMATOCRIT 32.9 % (36.0-47.0); LYMPHOCYTES % (AUTO) 21.6 % (13-45); MEAN CORPUSCULAR HEMOGLOBIN 30.5 pg (27.0-33.4); MEAN CORPUSCULAR HGB CONC 33.4 g/dL (32.0-36.0); MEAN CORPUSCULAR VOLUME 91 fl (80-97); MONOCYTES % (AUTO) 6.9 % (3-13); PLATELET COUNT 226 10^3/uL (150-450); RED CELL DISTRIBUTION WIDTH 15.5 % (11.5-14.0); SEGMENTED NEUTROPHILS % (AUTO) 69.4 % (42-78); TOTAL CELLS COUNTED % (AUTO) 100 %; WHITE BLOOD COUNT 4.6 10^3/uL (4.0-10.5)
--- NOTE | 2019-05-23 11:18 | RADIOLOGY REPORT (SQ) ---
EXAM DESCRIPTION: CHEST SINGLE VIEW COMPLETED DATE/TIME: 05/23/2019 11:02 am REASON FOR STUDY: chest pain COMPARISON: PA and lateral views of the chest from 07/06/2018. EXAM PARAMETERS: NUMBER OF VIEWS: One view. TECHNIQUE: Single frontal radiographic view of the chest acquired. RADIATION DOSE: NA LIMITATIONS: None. FINDINGS: LUNGS AND PLEURA: No consolidation, pleural effusion or pneumothorax. MEDIASTINUM AND HILAR STRUCTURES: No mediastinal hilar contour abnormality. HEART AND VASCULAR STRUCTURES: The cardiomediastinal silhouette and pulmonary vasculature are within normal limits. BONES: No acute findings. HARDWARE: None in the chest. OTHER: No other finding. IMPRESSION: No acute cardiopulmonary process. TECHNICAL DOCUMENTATION: JOB ID: [id number] [employer]- All Rights Reserved Reading location - IP/workstation name: [email or web address]
[2019-05-23 11:33] LABS: ALBUMIN 3.5 g/dL (3.5-5.0); ALKALINE PHOSPHATASE 62 U/L (38-126); ANION GAP 5 (5-19); ASPARTATE AMINO TRANSFERASE 19 U/L (14-36); BILIRUBIN,TOTAL 0.5 mg/dL (0.2-1.3); BLOOD UREA NITROGEN 11 mg/dL (7-20); CALCIUM 8.8 mg/dL (8.4-10.2); CARBON DIOXIDE 25 mmol/L (22-30); CHLORIDE 106 mmol/L (98-107); CREATINE KINASE 66 U/L (30-135); GLUCOSE 109 mg/dL (75-110); POTASSIUM 3.8 mmol/L (3.6-5.0); TOTAL PROTEIN 6.8 g/dL (6.3-8.2)
[2019-05-23 11:43] LABS: NT PRO BNP 363 pg/mL (<125)
[2019-05-23 11:45] LABS: CREATINE KINASE MB < 0.22 ng/mL (<4.55); TROPONIN I < 0.012 ng/mL
--- NOTE | 2019-05-23 13:12 | EKG REPORT ---
SEVERITY:- ABNORMAL ECG - SINUS RHYTHM PROBABLE LEFT ATRIAL ABNORMALITY PROBABLE LEFT VENTRICULAR HYPERTROPHY : Confirmed by: Scooby Case MD 23-May-2019 13:11:32
--- NOTE | 2019-05-23 13:43 | ER Document Report ---
ED Cardiac - General Chief Complaint: Chest Pain > 30 Stated Complaint: CHEST PAIN Time Seen by Provider: 05/23/19 10:30 Primary Care Provider: DANYA RODRIGEZ DO [Primary Care Provider] - Follow up as needed Mode of Arrival: Ambulatory Information source: Patient TRAVEL OUTSIDE OF THE [place] IN LAST 30 DAYS: No - HPI Notes: Patient presents with chest pain. She states that it started approximately 3 AM today. She states it only hurts when she moves. But it does radiate to the back as well as the upper and lower back. She had no shortness of breath or nausea with his pain. She states she is never had this pain previously. She does not know of any trauma or heavy lifting that she has done recently. She states she has had no previous cardiac evaluations. The pain is been mild to moderate. Currently she has no pain. It is worse with movement and better with rest. It is been intermittent. It lasted briefly only when she moves. It is a sharp sensation. She states that she does have a history of high blood pressure that is treated with lisinopril and hydrochlorothiazide. She does smoke tobacco but denies drugs. She does have social alcohol use. - Related Data Allergies/Adverse Reactions: Penicillins Allergy (Verified 02/16/19 13:36) rash Past Medical History - General Information source: Patient - Social History Smoking Status: Current Every Day Smoker Chew tobacco use (# tins/day): No Frequency of alcohol use: Social Drug Abuse: None Family History: Reviewed & Not Pertinent Patient has suicidal ideation: No Patient has homicidal ideation: No - Past Medical History Cardiac Medical History: Reports: Hx Hypertension Denies: Hx Atrial Fibrillation, Hx Congestive Heart Failure, Hx Coronary Artery Disease, Hx DVT, Hx Heart Attack, Hx Hypercholesterolemia, Hx Pulmonary Embolism Pulmonary Medical History: Reports: Hx Bronchitis Denies: Hx Asthma, Hx COPD, Hx Sleep Apnea Neurological Medical History: Denies: Hx Seizures Endocrine Medical History: Denies: Hx Diabetes Mellitus Type 1, Hx Diabetes Mellitus Type 2, Hx Hyperthyroidism, Hx Hypothyroidism Renal/ Medical History: Denies: Hx Peritoneal Dialysis GI Medical History: Reports: Hx Gastroesophageal Reflux Disease - heartburn r/t per pt. Denies: Hx Cirrhosis, Hx Hepatitis Musculoskeletal Medical History: Reports Hx Gout Psychiatric Medical History: Denies: Hx Depression Infectious Medical History: Denies: Hx Hepatitis Past Surgical History: Reports: Hx Gynecologic Surgery - leep, Other - LEEP procedure - Immunizations Hx Diphtheria, Pertussis, Tetanus Vaccination: Yes Review of Systems - Review of Systems Constitutional: denies: Chills, Fever Cardiovascular: Chest pain. denies: Palpitations Respiratory: denies: Cough, Short of breath Gastrointestinal: denies: Abdominal pain, Diarrhea -: Yes All other systems reviewed and negative Physical Exam - Vital signs Vitals: Temp Pulse Resp BP Pulse Ox 98.1 F 81 16 208/123 H 99 05/23/19 10:23 05/23/19 10:23 05/23/19 10:23 05/23/19 10:23 05/23/19 10:23 Interpretation: Hypertensive - General General appearance: Appears well, Alert - HEENT Head: Normocephalic, Atraumatic Eyes: Normal Pupils: PERRL - Respiratory Respiratory status: No respiratory distress Chest status: Nontender Breath sounds: Normal Chest palpation: Normal - Cardiovascular Rhythm: Regular Heart sounds: Normal auscultation Murmur: No - Abdominal Inspection: Normal Distension: No distension Bowel sounds: Normal Tenderness: Nontender Organomegaly: No organomegaly - Back Back: Normal, Nontender - Extremities General upper extremity: Normal inspection, Nontender, Normal color, Normal ROM, Normal temperature General lower extremity: Normal inspection, Nontender, Normal color, Normal ROM, Normal temperature, Normal weight bearing. No: Lanre's sign - Neurological Neuro grossly intact: Yes Cognition: Normal Orientation: AAOx4 [place] Coma Scale Eye Opening: Spontaneous [place] Coma Scale Verbal: Oriented [place] Coma Scale Motor: Obeys Commands [place] Coma Scale Total: 15 Speech: Normal Motor strength normal: LUE, RUE, LLE, RLE Sensory: Normal - Psychological Associated symptoms: Normal affect, Normal mood - Skin Skin Temperature: Warm Skin Moisture: Dry Skin Color: Normal Course - Vital Signs Vital signs: Temp Pulse Resp BP Pulse Ox 98.1 F 81 22 H 182/127 H 99 05/23/19 10:23 05/23/19 10:23 05/23/19 11:01 05/23/19 11:01 05/23/19 11:01 - Laboratory Result Diagrams: 05/23/19 10:55 05/23/19 10:55 Laboratory results interpreted by me: 05/23/19 05/23/19 05/23/19 10:55 10:55 10:55 RBC 3.60 L Hgb 11.0 L Hct 32.9 L RDW 15.5 H Sodium 136.4 L NT-Pro-B Natriuret Pep 363 H - Diagnostic Test Radiology reviewed: Image reviewed, Reports reviewed - EKG Interpretation by Me EKG shows normal: Sinus rhythm Rate: Normal - 79 Rhythm: NSR Voltage: Consistant with LVH Discharge - Discharge Clinical Impression: Chest wall pain Condition: Stable Disposition: HOME, SELF-CARE Instructions: Chest Wall Pain ([facility]) Additional Instructions: Please call your family doctor as soon as possible to arrange follow-up. Your blood pressure is significantly elevated today. You need to discuss this with your family physician as soon as possible. Please increase your dose of lisinopril from 20 mg a day to 40 mg a day until you see your primary care doctor. Prescriptions: Tramadol HCl [Ultram] 50 mg PO Q6 PRN 3 Days #12 tablet PRN Reason: Forms: Elevated Blood Pressure, Return to Work Referrals: DANYA RODRIGEZ DO [Primary Care Provider] - Follow up tomorrow
[2019-05-23 14:01] VITALS: BP 166/123
== END 2019-05-23 14:03 | disposition home or self-care (01) ==
LOC: ER 10:13
DX: R07.89 Other chest pain (principal); I10 Essential (primary) hypertension; Z79.899 Other long term (current) drug therapy; F17.200 Nicotine dependence, unspecified, uncomplicated; Z88.0 Allergy status to penicillin
CPT/HCPCS: 36415; 71045; 80053; 82550; 82553; 83690; 83735; 83880; 84484; 85025; 93005; 93010; 99285